=== PATIENT | female | born 1990 | race Caucasian/White ===

== ENCOUNTER 2024-04-14 14:53 | Emergency (ER) | payer BC, SELFPAY ==
[2024-04-14 15:24] VITALS: BP 138/96; PULSE 90; RESP 22; TEMP 36; O2SAT 98; BMI 28.3
--- NOTE | 2024-04-14 16:34 | ED_ITS ---
HPI - General Adult General Chief complaint: Extremity Pain/Injury, Lower Stated complaint: right side big toe hurts really bad Time Seen by Provider: 04/14/24 15:54 History of Present Illness HPI narrative: This 33-year-old female comes in with a very painful right great toenail. She d oes not report any particular injury event but states that she does quite a lot of walking. She developed a infection under the toenail and states that she needs to have the toenail removed. She does not report any fevers. She does have a whitish color under her great toenail typical of purulence with some surrounding erythema. She states she is otherwise in good health. Related Data Previous Rx's ?Medication ?Instructions ?Recorded cephalexin 500 mg capsule 500 mg PO TID 7 days #21 caps 04/14/24 ketorolac 10 mg tablet 10 mg PO Q8H 5 days #15 tabs 04/14/24 Review of Systems Status of ROS: Reports: 10 or more systems reviewed and unremarkable except as noted in History and below Narrative: Constitutional: No fevers, no weight gain or loss. Eyes: No discharge. No vision changes. HENT: No congestion, no sore throat, no ear pain. Cardiovascular: No chest pain, no palpitations. Respiratory: No shortness of breath, no wheezes, no cough. Gastrointestinal: No abdominal pain, no vomiting, no diarrhea. Genitourinary: No dysuria, no hematuria. Musculoskeletal: Normal range of motion. Skin: No rashes, no pruritis. Neurological: No dizziness, weakness, sensory change, speech change. Endo/Heme/Allergies: No bruising or bleeding. No polydipsia. Pysch: no suicidality, no anxiety, no insomnia. All other systems reviewed and are negative. Exam Narrative: Exam Narrative: Constitutional: Well-developed, well-nourished, no acute distress. HEENT: Normocephalic, atraumatic. Neck: Normal range of motion. Nontender. Supple. Heart: Regular. No murmurs. Normal rate. Intact distal pulses. Lungs: Clear to auscultation. No chest discomfort. No wheezes, rhonchi, or rales. Abdomen: Normal bowel sounds. Nontender. No rebound tenderness. Genitalia: Deferred. Back: No midline tenderness. Normal range of motion. Extremities: Normal range of motion. No injury. The right great toenail has pu rulence under the nail typical of a paronychial infection. There is some surrounding erythema and mild swelling. Skin: Intact. No rash. Warm. No erythema or pallor. Neurologic: No altered sensation. No weakness. Alert and oriented. Psychiatric: No suicidality. No anxiety or depression. No insomnia. Nursing notes and vitals signs are reviewed. Const: Vital Signs, click to edit/add: Vital Signs - 24 hr 04/14/24 15:24 Temperature 96.8 F L Pulse Rate [Left P ulse Oximeter] 90 Respiratory Rate 22 Blood Pressure [Ri ght Upper Arm] 138/96 H Pulse Oximetry 98 Oxygen Delivery Me thod Room Air Course Vital Signs Vital signs: Initial Vital Signs Temperature 96.8 F L 04/14/24 15:24 Temperature Source Temporal Artery Scan 04/14/24 15:24 Pulse Rate 90 04/14/24 15:24 Pulse Rhythm Regular 04/14/24 15:24 Respiratory Rate 22 04/14/24 15:24 Blood Pressure 138/96 H 04/14/24 15:24 Blood Pressure Mean 110 H 04/14/24 15:24 Blood Pressure Position Sitting 04/14/24 15:24 Pulse Oximetry 98 04/14/24 15:24 Oxygen Delivery Method Room Air 04/14/24 15:24 Vital Signs Temperature 96.8 F L 04/14/24 15:24 Pulse Rate 90 04/14/24 15:24 Respiratory Rate 22 04/14/24 15:24 Blood Pressure 138/96 H 04/14/24 15:24 Pulse Oximetry 98 04/14/24 15:24 Oxygen Delivery Method Room Air 04/14/24 15:24 Temperature 96.8 F L 04/14/24 15:24 Pulse Rate 90 04/14/24 15:24 Respiratory Rate 22 04/14/24 15:24 Blood Pressure 138/96 H 04/14/24 15:24 Pulse Oximetry 98 04/14/24 15:24 Oxygen Delivery Method Room Air 04/14/24 15:24 Medical Decision Making MDM Narrative Medical decision making narrative: This patient comes in with a infection under her right great toenail that is causing severe pain. After cleansing the area I did administer a digital block using 1% lidocaine. I did also use some injection of this medicine for further anesthesia right at the area around the toenail. With the assistance of a number 15 blade and a Shena I was able to easily remove the foot toenail without much discomfort. The nail bed is looking good. The patient is okay to be discharged home and received prescriptions for Toradol and Keflex. She also received to return to work note. Discharge Plan Discharge Clinical Impression: Paronychia Patient Disposition: Home, Self-Care Condition: Improved Additional Instructions: Take medication as prescribed. Follow up with MD return if worsening. Prescriptions: New ketorolac 10 mg tablet 10 mg PO Q8H 5 Days Qty: 15 0RF cephalexin 500 mg capsule 500 mg PO TID 7 Days Qty: 21 0RF Follow Up/Referrals: Michael Cornelius MD [Primary Care Provider] - Stand Alone Forms: [employer] Info Instructions
--- OUTSIDE RECORDS SUMMARY | 2024-04-14 16:54 | XMS_ITS | Encounter Summary ---
Author Organization [facility] Address [address] [place] [address] Care Team Providers Care Deli Associate Name Role Phone Unavailable Primary Care Provider Unavailabl e Reason for Referral * Therapies (Routine) - New Request Specialty Diagnoses / Procedures Referred By Contsheila t Referred To Contact Diagnoses Right knee pain, unspecified chronicity Araceli Frank PA-C [address] [place] [address] Referral ID Status Reason Start Date Expiration Date V isits Requested Visits Authorized [id number] New Request 02/21/2024 02/20/2025 1 1 Scheduling Instructions Your clinician has recommended an appointment with [facility] Therapy [facility] Rehabilitation Services. You can quickly make your appointment online at Bio/schedule. You can also call [phone] for help scheduling your appointment. We suggest you call your health insurance company about your coverage and benefits for this appointment. Question Answer Appointment Urgency? Non-Urgent Requested Services Evaluate and treat May use saline for irrigation or cleansing Yes dexamethasone use Yes May check glucose per protocol (see policy link below) or if patient has symptoms? Yes Comments Chronic right knee pain with suspected meniscal cyst. Eval and treat. * Procedure/Equipment (Routine) - Incomplete Specialty Diagnoses / Procedures Referred By Contac t Referred To Contact Diagnoses Right knee pain, unspecified chronicity Procedures XR Knee Rt 3 Views Araceli Frank PA-C [address] [place] [address] Referral ID Status Reason Start Date Expiration Date V isits Requested Visits Authorized [id number] Incomplete 02/21/2024 05/22/2025 1 1 Reason for Visit * Reason Comments KNEE PAIN Right knee margot - saw [facility] has a ACL/ runners knee Done pt and aspiration Encounter Details Date Type Department Care Team (Late st Contact Info) Description 02/21/2024 1:20 PM CDT Office Visit [facility] [address] [place] [phone] Araceli Frank PA-C [address] [place] [address] Right knee pain, unspecified chronicity (Primary Dx) Social History Tobacco Use Types Packs/Day Years Used Date Smoking Tobacco: Never Assessed Sex and Gender Information Value Date Recorded Sex Assigned at Not on file Gender Identity Not on file Sexual Orientation Not on file documented as of this encounter Last Filed Vital Signs Vital Sign Reading Time Taken Comments Blood Pressure - - Pulse - - Temperature - - Respiratory Rate - - Oxygen Saturation - - Inhaled Oxygen Concentration - - Weight 71.2 kg (156 lb 15.5 oz) 02/21/2024 1:14 PM CDT Height 160 cm (5' 3) 02/21/2024 1:14 PM CDT Body Mass Index 27.81 02/21/2024 1:14 PM CDT documented in this encounter Patient Instructions * Patient Instructions* Araceli Frank PA-C - 02/21/2024 1:20 PM CDT MRI Right Knee - progressing pain and suspicious of meniscal cyst and possible tear with mechanicalsymptoms. documented in this encounter Progress Notes * Araceli Frank PA-C - 02/21/2024 1:20 PM CDT Subjective: Chief Complaint Right Knee Pain Hanane Ojeda is a 33 y.o. female presents for evaluation and treatment of right knee pain. She reports initial onset of pain around 3 years ago and she states she had a MRI at that point in time with some Orthopedics and had a MCL tear as well as runner's knee. She went through physical therapy without any significant improvement. Over the last 2 years she is been having pain in her kneecap as well as a pressure sensation. Over the past month she is began to have popping in her knee has started to make significant noises with squatting and stairs over the last few weeks. She is also noticeda grape size structure that appears in the front of her knee when she does deep knee flexion. She st ates walking is okay and does not seem to bother her, but any sort of more intense activity or kneeflexion is bothersome. She notes that if she kneels on the floor to be with her son that her knee locks and she will get stuck on the floor for about 45 minutes due to her knee being stuck. She has to jerk it back into place. She has had intermittent swelling. She is utilizing naproxen, gabapentin,and also goes to a pain clinic. Past Medical History, Past Surgical History, Social History, and Family Medical History was reviewed and updated as appropriate. A complete review of systems was reviewed per the intake sheet and negative except as noted in HPI. No Known Allergies Objective: General : alert, cooperative, no distress, appears stated age Gait: Normal. The patient can bear weight on the injured extremity. Skin: Clean, dry, intact. No rashes or lesions. Right Lower Extremity Knee Effusion: None. Ecchymosis: none Tenderness: Medial joint line Knee ROM: 0 to 140 degrees with subpatellar crepitance. Strength Normal Patella: Patella does track normally. Patellar apprehension test: negative Patellar compression test: positive Stability: Vitaliy's test: stable Posterior drawer: stable Medial collateral ligament: stable Lateral collateral ligament: stable Michele's Test: positive with medial joint line tenderness Sensation: intact to light touch to pressure and light touch. Mass present to the medial joint with knee flexion that is subsides with knee extension. Imaging X-rays: 3 views of the knee were taken and independently reviewed. No evidence of acute fracture. Appropriate joint alignment. Assessment: Chronic right knee pain, suspected parameniscal cyst Plan: We discussed the diagnosis and treatment options. We opted to get her back in for physical therapy.We did discuss the use of a MRI, however she would need prior authorization from her insurance company and would likely require 6 weeks of conservative measures before being able to move forward witha MRI. She did state that she can get it from her pain clinic, so she is going to discuss with themif they are comfortable ordering the MRI. Radiology studies and anatomy of the knee reviewed. Patient verbalized understanding and agreement to our treatment plan. All of her questions were answered to her satifaction. Araceli Frank PA-C This note contains medical terminology which is meant for communication between health care clinicians and providers. Please note that vocabulary/phrasing/abbreviations may not carry the same definitions as they would in normal conversational speech. Additionally voice recognition software was usedto generate this note. As a result, wrong word or '[id number]' substitutions may have occurred due to the inherent limitations of voice recognition software. There may be errors in the script that have gone undetected. Please consider this when interpreting information found in this chart. documented in this encounter Plan of Treatment Scheduled Referrals Name Type Priority Associated Diagnoses Orde r Schedule Physical Therapy Referral Routine Right knee pain, unspecified chronicity Ordered: 02/21/2024 documented as of this encounter Procedures Procedure Name Priority Date/Time Associated Diagnosis Comments XR KNEE RT 3 VIEWS Routine 02/21/2024 1: 31 PM CDT Right knee pain, unspecified chronicity documented in this encounter Results * XR Knee Rt 3 Views (02/21/2024 1:31 PM CDT) Anatomical Region Laterality Modality Lower Extremity, Knee Digital Ra diography 02/21/2024 1:21 PM CDT Impressions 02/21/2024 2:14 PM CDT COMPARISON: ??None. FINDINGS: ??Three views were obtained. ??No acute or significant bone or joint abnormality of the right knee is identified. ??Alignment is unremarkable. Narrative Procedure Note Elena Fernandez MD - 02/21/2024 IMPRESSION COMPARISON: None. FINDINGS: Three views were obtained. No acute or significant bone orjoint abnormality of the right knee is identified. Alignment isunremarkable. Araceli BRADSHAW GD documented in this encounter Visit Diagnoses Diagnosis Right knee pain, unspecified chronicity- Primary documented in this encounter
--- OUTSIDE RECORDS SUMMARY | 2024-04-14 16:54 | XMS_ITS | Encounter Summary ---
Author Organization [facility] Address [address] [address] Care Team Providers Care Boiler Repairman Name Role Phone Unavailable Primary Care Provider Unavailabl e Reason for Visit * Procedure/Equipment (Routine) - Incomplete Specialty Diagnoses / Procedures Referred By Contac t Referred To Contact Procedures Foreign Image(S) MR Knee Rt Provider, [facility] [address] [place] [address] Referral ID Status Reason Start Date Expiration Date V isits Requested Visits Authorized [id number] Incomplete 03/26/2024 06/25/2025 1 1 Encounter Details Date Type Department Care Team (Late st Contact Info) Description 03/18/2024 4:05 PM CDT Ancillary Procedure [facility] [address] [place] [id number] Provider, [facility] [address] [place] [address] Social History Tobacco Use Types Packs/Day Years Used Date Smoking Tobacco: Never Assessed Sex and Gender Information Value Date Recorded Sex Assigned at Not on file Gender Identity Not on file Sexual Orientation Not on file documented as of this encounter Plan of Treatment Not on file documented as of this encounter Procedures Procedure Name Priority Date/Time Associated Diagnosis Comments FOREIGN IMAGE(S) MR KNEE RT Routine 03/18/2024 4:05 PM CDT documented in this encounter Results * Foreign Image(S) MR Knee Rt (03/18/2024 4:05 PM CDT) Narrative POCT - 03/26/2024 8:50 AM CDT These outside images have been uploaded into PACS. If the results were provided, they will be located in the patient's chart under the Media or Imaging tab. Foreign Images Provider RAD NON-REPORTAB LES POCT documented in this encounter Visit Diagnoses Not on filedocumented in this encounter
--- OUTSIDE RECORDS SUMMARY | 2024-04-14 16:54 | XMS_ITS | Encounter Summary ---
Author Organization [facility] Address [address] [address] Care Team Providers Care Body And Frame Technician Name Role Phone Unavailable Primary Care Provider Unavailabl e Reason for Visit * Procedure/Equipment (Routine) - Incomplete Specialty Diagnoses / Procedures Referred By Contac t Referred To Contact Diagnoses Right knee pain, unspecified chronicity Procedures XR Knee Rt 3 Views Araceli Frank PA-C [address] [place] [address] Referral ID Status Reason Start Date Expiration Date V isits Requested Visits Authorized [id number] Incomplete 02/21/2024 05/22/2025 1 1 Encounter Details Date Type Department Care Team (Late st Contact Info) Description 02/21/2024 1:25 PM CDT [facility] [address] [facility] [address] [place] [phone] Araceli Frank PA-C [address] [place] [address] Social History Tobacco Use Types Packs/Day Years [...] GD documented in this encounter Visit Diagnoses Not on filedocumented in this encounter
--- OUTSIDE RECORDS SUMMARY | 2024-04-14 16:54 | XMS_ITS | Encounter Summary ---
Author Organization [facility]ending sale to [facility] Address [address] [address] Care Team Providers Care Forensic Pathologist Name Role Phone Found, No Pcp MD Primary Care Provider Unavailab le Reason for Visit * Reason Comments Surgery, To Schedule Appt. Needed Encounter Details Date Type Department Care Team (Late st Contact Info) Description 03/28/2024 Telephone [facility] [address] [place] [phone] [place] [address] [facility] [address] [place] [address] Surgery, To Schedule; Appt. Needed Social History Tobacco Use Types Packs/Day Years Used Date Smoking Tobacco: Never Assessed Sex and Gender Information Value Date Recorded Sex Assigned at Not on file Gender Identity Not on file Sexual Orientation Not on file documented as of this encounter Nursing Notes * Jeanie Coleman - 03/28/2024 3:09 PM CDT LVM for patient regarding surgery - she will need a follow up appt on clinic with Dr. Espinosa. CALL CENTER: please assist with an appt if Hanane calls back Thank you CD documented in this encounter Plan of Treatment Not on file documented as of this encounter Visit Diagnoses Not on filedocumented in this encounter Care Teams Forensic Pathologist Relationship Specialty Start Date End Date Found, No Pcp, [address] [place] [address] PCP - General 03/25/24 documented as of this encounter
--- OUTSIDE RECORDS SUMMARY | 2024-04-14 16:54 | XMS_ITS | Encounter Summary ---
Author Organization [facility] Address [address] [address] Care Team Providers Care Game Attendant Name Role Phone Found, No Pcp MD Primary Care Provider Unavailab le Reason for Visit * Reason Comments Follow-up Right knee MRI resul ts Encounter Details Date Type Department Care Team (Late st Contact Info) Description 03/27/2024 11:40 AM CDT Office Visit [facility] [address] [place] [phone] Araceli Frank PA-C [address] [place] [address] Right knee pain, unspecified chronicity (Primary Dx) Social History Tobacco Use Types Packs/Day Years Used Date Smoking Tobacco: Never Assessed Sex and Gender Information Value Date Recorded Sex Assigned at Not on file Gender Identity Not on file Sexual Orientation Not on file documented as of this encounter Progress Notes * Araceli Frank PA-C - 03/27/2024 11:40 AM CDT Hanane returns today for MRI review. Ever since she had the injection in her knee for the MR arthrogram, the mass has continued to cause her more issues in his now moving throughout the joint. She states he used to be stationary in was only bothersome when she would sit on the floor and get back up, but now it is bothersome at all times. She would like to have the mass removed. She has been cortisone in the past in his not interested in giving it a trial. Right Knee MRI IMPRESSION: 1. A 1.3 x 1.0 x 1.1 cm ovoid focus of intermediate signal within the anterior joint space deep to the infrapatellar fat pad may reflect localized nodular synovitis but is not specific. This is new compared to previous MRI 11/19/2019. 2. 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 3. No osseous pathology, tendinous pathology, acute ligamentous injury, or meniscal pathology of the right knee. Intact medial and lateral compartment cartilage. Araceli Frank PA-C 1:12 PM 03/27/2024 documented in this encounter Plan of Treatment Not on file documented as of this encounter Visit Diagnoses Diagnosis Right knee pain, unspecified chronicity- Primary documented in this encounter Care Teams Game Attendant Relationship Specialty Start Date End Date Found, No Pcp, [address] [place] [address] PCP - General 03/25/24 documented as of this encounter
--- OUTSIDE RECORDS SUMMARY | 2024-04-14 16:54 | XMS_ITS | Clinical Summary ---
Author Organization [facility] Address [address], [place] [address] Care Team Providers Care Armature Straightener Name Role Phone Found, No Pcp MD Primary Care Provider Unavailab le Source Comments You are receiving this document as you are listed as the primary care provider,follow-up provider, or the patient has been referred to you for consultation.This is in compliance with the Medicare and[facility], In[facility] EHR Incentive Program,which states Providers who transition their patient to another setting of careor provider of care or refers their patient to another provider of care shouldprovide summary care record for each transition of care or referral. [facility] Allergies No known active allergies Medications Medication Sig Dispensed Refills Start Date End Date Status buprenorphine (SUBUTEX) [address] 3 Tablets (24 mg) under tongue daily as needed. Active methocarbamol (ROBAXIN) 500 MG tablet Take 1 Tablet (500 mg) by mouth three times a day. 01/22/2024 Active naproxen (NAPROSYN) 250 MG tablet Take 1 Tablet (250 mg) by mouth two times a day. 02/18/2024 Active gabapentin (NEURONTIN) 300 MG capsule Take 1 Capsule (300 mg) by mouth three times a day. 02/21/2024 Active Active Problems No known active problems Encounters Date Type Department Care Team Description 03/28/2024 Telephone [facility] [address] [place] [address] Samson Espinosa MD Surgery, To Schedule; Appt. Needed 03/27/2024 11:40 AM CDT Office Visit [facility] [address] [place] [address] Araceli Frank PA-C Right knee pain, unspecified chronicity (Primary Dx) 03/25/2024 Telephone [facility] [address] [place] [address] Araceli Frank PA-C Appt. Work In Request (MRI Results); Pain 03/18/2024 4:05 PM CDT Ancillary Procedure Radiology PACS [address] [place] [address] Provider, Foreign Images 03/18/2024 3:50 PM CDT Ancillary Procedure Radiology PACS [address] [place] [address] Provider, Foreign Images 02/21/2024 1:25 PM CDT Ancillary Procedure [facility] [place] [address] [facility] [address] [place] [address] Araceli Frank PA-C 02/21/2024 1:20 PM CDT Office Visit [facility] [address] [place] [address] Araceli Frank PA-C Right knee pain, unspecified chronicity (Primary Dx) from Last 3 Months Social History Tobacco Use Types Packs/Day Years Used Date Smoking Tobacco: Never Assessed Sex and Gender Information Value Date Recorded Sex Assigned at Not on file Gender Identity Not on file Sexual Orientation Not on file Last Filed Vital Signs Vital Sign Reading Time Taken Comments Blood Pressure - - Pulse - - Temperature - - Respiratory Rate - - Oxygen Saturation - - Inhaled Oxygen Concentration - - Weight 71.2 kg (156 lb 15.5 oz) 02/21/2024 1:14 PM CDT Height 160 cm (5' 3) 02/21/2024 1:14 PM CDT Body Mass Index 27.81 02/21/2024 1:14 PM CDT Plan of Treatment Health Maintenance Due Date Last Done Comments Cervical Cancer Screening Due 1991 Hep C Screening (Preventive Services) 1991 HIV Screening (Preventive Services) 2007 Adult Preventive Visit 2009 HepB (1) 2010 COVID-19 Vaccine (2022-2 4 season) 2023 03/10/2021, 02/20/2021 DTaP/Tdap/Td (2 - Tdap) 03/12/2024 03/12/2014 Influenza (#1) 2024 Zoster/Shingles (1 of 2) 2041 HPV Vaccine Completed 11/14/2011, 01/14/2008, 11/14/2007 HepA Aged Out No longer eligi ble based on patient's age to complete this topic Hib Aged Out No longer eligi ble based on patient's age to complete this topic IPV (Polio) Aged Out No longer eligi ble based on patient's age to complete this topic MCV4 Aged Out No longer eligi ble based on patient's age to complete this topic Pneumococcal Aged Out No longer eligi ble based on patient's age to complete this topic Procedures Procedure Name Priority Date/Time Associated Diagnosis Comments FOREIGN IMAGE(S) MR KNEE RT Routine 03/18/2024 4:05 PM CDT FOREIGN IMAGE(S) XR FLUOROSCOPY Routine 03/18/2024 3:50 PM CDT XR KNEE RT 3 VIEWS Routine 02/21/2024 1: 31 PM CDT Right knee pain, unspecified chronicity from Last 3 Months Results * Foreign Image(S) MR Knee Rt (03/18/2024 4:05 PM CDT) Narrative POCT - 03/26/2024 8:50 AM CDT These outside images have been uploaded into PACS. If the results were provided, they will be located in the patient's chart under the Media or Imaging tab. Foreign Images Provider RAD NON-REPORTAB LES POCT * Foreign Image(S) XR Fluoroscopy (03/18/2024 3:50 PM CDT) Narrative POCT - 03/26/2024 8:52 AM CDT These outside images have been uploaded into PACS. If the results were provided, they will be located in the patient's chart under the Media or Imaging tab. Foreign Images Provider RAD NON-REPORTAB LES POCT * XR Knee Rt 3 Views (02/21/2024 [...] is identified. Alignment isunremarkable. Araceli BRADSHAW GD from Last 3 Months Care Teams Armature Straightener Relationship Specialty Start Date End Date Found, No Pcp, [address] [place] [address] PCP - General 03/25/24
--- OUTSIDE RECORDS SUMMARY | 2024-04-14 16:54 | XMS_ITS | Encounter Summary ---
Author Organization [facility] Address [address], [place] [address] Care Team Providers Care Sawmill Production Worker Name Role Phone Unavailable Primary Care Provider Unavailabl e Reason for Visit * Procedure/Equipment (Routine) - Incomplete Specialty Diagnoses / Procedures Referred By Contac t Referred To Contact Procedures Foreign Image(S) XR Fluoroscopy Provider, Foreign Images [address] [place] [address] Referral ID Status Reason Start Date Expiration Date V isits Requested Visits Authorized [id number] Incomplete 03/26/2024 06/25/2025 1 1 Encounter Details Date Type Department Care Team (Late st Contact Info) Description 03/18/2024 3:50 PM CDT Ancillary Procedure [facility] P[facility] [address] [place] [address] Provider, Foreign Images [address] [place] [address] Social History Tobacco Use Types Packs/Day Years Used Date Smoking Tobacco: Never Assessed Sex and Gender Information Value Date Recorded Sex Assigned at Not on file Gender Identity Not on file Sexual Orientation Not on file documented as of this encounter Plan of Treatment Not on file documented as of this encounter Procedures Procedure Name Priority Date/Time Associated Diagnosis Comments FOREIGN IMAGE(S) XR FLUOROSCOPY Routine 03/18/2024 3:50 PM CDT documented in this encounter Results * Foreign Image(S) XR Fluoroscopy (03/18/2024 3:50 [...]
--- OUTSIDE RECORDS SUMMARY | 2024-04-14 16:54 | XMS_ITS | Encounter Summary ---
Author Organization [facility] Address [address] [place] [address] Care Team Providers Care Family And Marriage Counsellor Name Role Phone Found, No Pcp MD Primary Care Provider Unavailab le Reason for Visit * Reason Comments Appt. Work In Request MRI Results Pain Encounter Details Date Type Department Care Team (Late st Contact Info) Description 03/25/2024 Telephone [facility] [place] [facility] [address] [place] [address] Araceli Frank PA-C [address] [place] [address] Appt. Work In Request (MRI Results); Pain Social History Tobacco Use Types Packs/Day Years Used Date Smoking Tobacco: Never Assessed Sex and Gender Information Value Date Recorded Sex Assigned at Not on file Gender Identity Not on file Sexual Orientation Not on file documented as of this encounter Nursing Notes * Araceli Frank PA-C - 03/25/2024 5:03 PM CDT Left VM. I recommend doing a cortisone injection and PT to start. It is okay to double book an AM slot, or see her over lunch time, on 03/27/24. That afternoon will not work. If she is unable to come in on Monday, she will need to wait until her current appointment on 04/08/24. She is not in any harm to wait until the 04/08 appointment. Araceli Frank PA-C 5:07 PM 03/25/2024 * Rosana Andre - 03/25/2024 3:54 PM CDT GENERAL QUESTIONS How may we help you today? 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 Pt scheduled the next availablefollow up 04/08/2024. Pt said the knee growth is popping out in front of the knee and causing more pain than before when it just hurt when bending. Pt requests an earlier work in appt or another provider for pt to see sooner. Please advise. Describe your symptoms/concerns: MRI results sooner appt request When did the issue start: 03/18/2024 Have you been seen for this recently?: Yes: Date: 02/21/2024 Provider: Araceli Frank PA-C If we are unable to reach you can we leave a detailed message on your voicemail? Yes If we are unable to reach you can we send you a message in [employer]? No [Meat Market Manager/Clamp Forklift Operator: Relay to patient; We make every effort to get back to you sameday, however it may take 1-2 business days depending on the nature of the communication.] documented in this encounter Plan of Treatment Not on file documented as of this encounter Visit Diagnoses Not on filedocumented in this encounter Care Teams Family And Marriage Counsellor Relationship Specialty Start Date End Date Found, No Pcp, [address] [place] [address] PCP - General 03/25/24 documented as of this encounter
--- OUTSIDE RECORDS SUMMARY | 2024-04-14 16:55 | XMS_ITS | Encounter Summary ---
Author Organization [place] Address [facility] [place] [address] Care Team Providers Care Economics Analyst Name Role Phone Tone Galindo MD Primary Care Provider Sekou Machado MD Unavailable Ericka Hernandez APRN MANAGER VEHICLE Unavailable Unavail able Tone Galindo MD Unavailable Ericka Hernandez APRN MANAGER VEHICLE Unavailable Unavail able Clinic - [facility] Unavail able Encounter Details Date Type Department Care Team (Late st Contact Info) Description 04/12/2022 MyC Medical Advice [facility] [address] [place] [address] Sekou Machado MD [address] [place] [address] Social History Tobacco Use Types Packs/Day Years Used Date Smoking Tobacco: Every Day Cigarettes 0.3 10 Smokeless Tobacco: Never Comments:Decreased from 1ppd to less than 6 cigarettes /d Alcohol Use Standard Drinks/Week Comments No 0 (1 standard drink = 0.6 oz pur e alcohol) PHQ-2 Answer Date Recorded PHQ-2 Score 0 04/14/2022 Comments Yes Sex and Gender Information Value Date Recorded Sex Assigned at Female 12/17/2021 7:56 AM CDT Gender Identity Female 12/17/2021 7:56 AM CDT Sexual Orientation Not on file COVID-19 Exposure Response Date Recorded In the last 10 days, have yo u been in contact with someone who was confirmed or suspected to have Coronavirus/COVID-19? No / Unsure 04/14/2022 9:39 AM CDT documented as of this encounter Plan of Treatment Not on file documented as of this encounter Visit Diagnoses Not on filedocumented in this encounter Care Teams Economics Analyst Relationship Specialty [place] [address] [place] [address] PCP - General Family Practice 09/12/16 Sekou Machado MD [address] [place] [address] Assigned OBGYN Provider 10/03/21 Ericka Hernandez APRN MANAGER VEHICLE [address] [place] [address] Assigned PCP 12/26/21 01/06/23 [place] [address] [place] [address] Assigned PCP 01/07/23 06/30/23 Ericka Hernandez APRN MANAGER VEHICLE Assigned PCP 07/01/23 10/25/23 [facility] [address] [place] [address] Assigned PCP 10/26/23 documented as of this encounter
--- OUTSIDE RECORDS SUMMARY | 2024-04-14 16:55 | XMS_ITS | Encounter Summary ---
Author Organization [place] Address [facility] [place] [address] Care Team Providers Care Paster Supervisor Name Role Phone Tone Galindo MD Primary Care Provider [phone] Clinic - [facility] Unavail able Reason for Visit * Reason Onset Date Comments Hospital F/U 03/29/2024 Wrist Drop Right Encounter Details Date Type Department Care Team (Late st Contact Info) Description 03/29/2024 Telephone [facility] [address] [place] [address] Deysi Zabala, MELISSA Hospital F/U (Wrist Drop Right ) Social History Tobacco Use Types Packs/Day Years Used Date Smoking Tobacco: Every Day Cigarettes 0.3 10 Smokeless Tobacco: Never Comments:Decreased from 1ppd to less than 6 cigarettes /d Alcohol Use Standard Drinks/Week Comments No 0 (1 standard drink = 0.6 oz pur e alcohol) PHQ-2 Answer Date Recorded PHQ-2 Score 0 06/07/2022 [place] Depression Scale Answer Date Recorded Last EPDS Total Score Not on file 05/03/2022 The thought of harming myself has occurred to me . Never 05/03/2022 Adolescent Education Answer Date Record ed Getting School Help Needed Not on file 07/13 Sex and Gender Information Value Date Recorded Sex Assigned at Female 12/17/2021 7:56 AM CDT Gender Identity Female 12/17/2021 7:56 AM CDT Sexual Orientation Not on file documented as of this encounter Miscellaneous Notes * Telephone Encounter - Ashley Marvin RN - 04/01/2024 1:21 PM CDT Transitions of Care Outreach Chief Complaint Patient presents with Hospital F/U Wrist Drop Right Most Recent Admission Date: 03/28/2024 Most Recent Admission Diagnosis: Most Recent Discharge Date: 03/28/2024 Most Recent Discharge Diagnosis: Wrist drop, right - M21.331 Transitions of Care Assessment Discharge Assessment How are you doing now that you are home?: Some feeling in her wrist has come back but the rest is unchanged How are your symptoms? (Red Flag symptoms escalate to triage hotline per guidelines): Unchanged Do you know how to contact your clinic care team if you have future questions or changes to your health status? : Yes Does the patient have their discharge instructions? : Yes Does the patient have questions regarding their discharge instructions? : Yes (see comment) (Provided patient the number on the neurology referral for scheduling.) Were you started on any new medications or were there changes to any of your previous medications? : No Does the patient have all of their medications?: No (see comment) (no new medications) Do you have questions regarding any of your medications? : No Do you have all of your needed medical supplies or equipment (DME)? (i.e. oxygen tank, CPAP, cane, etc.): Yes Follow up Plan Discharge Follow-Up Discharge follow up appointment scheduled in alignment with recommended follow up timeframe or Transitions of Risk Category? (Low = within 30 days; Moderate= within 14 days; High= within 7 days): No Patient's follow up appointment not scheduled: Patient declined scheduling support. Education on the importance of transitions of care follow up. Provided scheduling phone number. No future appointments. Outpatient Plan as outlined on AVS reviewed with patient. For any urgent concerns, please contact our 24 hour nurse triage line: ([phone]) Ashley Marvin RN * Telephone Encounter - Kate Amos RN - 03/29/2024 9:16 AM CDT Attempt x 1. Called pt and left a message to call back to and to ask to speak to a triage nurse. When pt calls back, Complete hospital follow-up. Kate Nolasco RN PAL (Patient Advocate Liaison) [facility] * Telephone Encounter - Deysi Zabala RN - 03/29/2024 8:00 AM CDT Hospital Follow Up ER visit 03/28/24 Diagnosis Wrist drop right (neuropathy radial neve) Medications No medication changes at ER visit Follow Up instructions Neurology referral placed Does not advise pcp follow up - has not been seen since 2020 - needs visit is Dr. Galindo is still pcp [facility] documented in this encounter Plan of Treatment Not on file documented as of this encounter Visit Diagnoses Not on filedocumented in this encounter Additional Health Concerns Assessment Noted Time PHQ-9 Depression Total Score: 0 06/07/20 22 4:21 PM CDT documented as of this encounter Care Teams Paster Supervisor Relationship Specialty [place] [address] [place] [address] PCP - General Family Practice 09/12/16 Clinic - [facility] [address] [place] [address] Assigned PCP 10/26/23 documented as of this encounter
--- OUTSIDE RECORDS SUMMARY | 2024-04-14 16:55 | XMS_ITS | Encounter Summary ---
Author Organization [place] Address [facility] [place] [address] Care Team Providers Care District Manager Postal Service Name Role Phone Tone Galindo MD Primary Care Provider Sekou Machado MD Unavailable [phone] Ericka Hernandez APRN DIAMOND POWDER TECHNICIAN Unavailable Unavail able Tone Galindo MD Unavailable Ericka Hernandez APRN DIAMOND POWDER TECHNICIAN Unavailable Unavail able [facility] Unavail able Reason for Visit * Reason Onset Date Comments MyChart Communication 03/02/2022 Encounter Details Date Type Department Care Team (Late st Contact Info) Description 03/02/2022 MyC Medical Advice [facility] [address] [facility] [address] [place] [address] Sekou Machado MD [address] [place] [address] MyChart Communication Social History Tobacco Use Types Packs/Day Years Used Date Smoking Tobacco: Every Day Cigarettes 0.3 10 Smokeless Tobacco: Never Comments:Decreased from 1ppd to less than 6 cigarettes /d Alcohol Use Standard Drinks/Week Comments No 0 (1 standard drink = 0.6 oz pur e alcohol) PHQ-2 Answer Date Recorded PHQ-2 Score 0 09/29/2021 Comments Yes Sex and Gender Information Value Date Recorded Sex Assigned at Female 12/17/2021 7:56 AM CDT Gender Identity Female 12/17/2021 7:56 AM CDT Sexual Orientation Not on file COVID-19 Exposure Response Date Recorded In the last 10 days, have yo u been in contact with someone who was confirmed or suspected to have Coronavirus/COVID-19? No / Unsure 03/03/2022 2:20 PM CDT documented as of this encounter Miscellaneous Notes * Telephone Encounter - Sarah Denson RN - 03/02/2022 4:05 PM CDT Please see mychart and advise. Pt has appt tomorrow wiht you, PT scheduled for 03/15. Sarah Denson RN documented in this encounter Plan of Treatment Not on file documented as of this encounter Visit Diagnoses Not on filedocumented in this encounter Care Teams District Manager Postal Service Relationship Specialty [place] [address] [place] [address] PCP - General Family Practice 09/12/16 Sekou Machado MD [address] [place] [address] Assigned OBGYN Provider 10/03/21 Ericka Hernandez APRN DIAMOND POWDER TECHNICIAN [address] [place] [address] Assigned PCP 12/26/21 01/06/23 [place] [address] [place] [address] Assigned PCP 01/07/23 06/30/23 Ericka Hernandez APRN DIAMOND POWDER TECHNICIAN Assigned PCP 07/01/23 10/25/23 Clinic - [facility] [address] [place] [address] Assigned PCP 10/26/23 documented as of this encounter
--- OUTSIDE RECORDS SUMMARY | 2024-04-14 16:55 | XMS_ITS | Encounter Summary ---
Author Organization [place] Address [facility] [address] Care Team Providers Care Burner Tender Name Role Phone Tone Galindo MD Primary Care Provider Sekou Machado MD Unavailable Tone Galindo MD Unavailable Ericka Hernandez APRN ADA ACCOMMODATION CONSULTANT Unavailable Unavail able Tone Galindo MD Unavailable Ericka Hernandez APRN ADA ACCOMMODATION CONSULTANT Unavailable Unavail able [facility] Unavail able Encounter Details Date Type Department Care Team (Late st Contact Info) Description 10/29/2021 MyC Medical Advice [facility] [address] [place] [address] Sekou Machado MD [address] [place] [address] Social History Tobacco Use Types Packs/Day Years [...] Exposure Response Date Recorded In the last month, have you been in contact with someone who was confirmed or suspected to have Coronavirus / COVID-19? No / Unsure 10/29/2021 9:59 AM GUIDE WINDER documented as of this encounter Plan of Treatment Not on file documented as of this encounter Visit Diagnoses Not on filedocumented in this encounter Care Teams Burner Tender Relationship Specialty [place] [address] [place] [address] PCP - General Family Practice 09/12/16 Sekou Machado MD [address] [place] [address] Assigned OBGYN Provider 10/03/21 [place] [address] [place] [address] Assigned PCP 10/10/21 12/25/21 Ericka Hernandez APRN ADA ACCOMMODATION CONSULTANT [address] [place] [address] Assigned PCP 12/26/21 01/06/23 [place] [address] [place] [address] Assigned PCP 01/07/23 06/30/23 Ericka Hernandez APRN ADA ACCOMMODATION CONSULTANT Assigned PCP 07/01/23 10/25/23 [facility] [address] [place] [address] Assigned PCP 10/26/23 documented as of this encounter
--- OUTSIDE RECORDS SUMMARY | 2024-04-14 16:55 | XMS_ITS | Encounter Summary ---
Author Organization [place] Address [address] [facility] [place] [address] Care Team Providers Care Communication Manager Name Role Phone Tone Galindo MD Primary Care Provider [phone] [facility] Unavail able Reason for Referral * Consultation (Urgent: 3-5 Days) - Pending Review Specialty Diagnoses / Procedures Referred By Blanche cardenas Referred To Contact Diagnoses Wrist drop, right Jagdeep Shipman PA-C [facility] [address] [place] [address] Referral ID Status Reason Start Date Expiration Date V isits Requested Visits Authorized [id number] Pending Review 03/28/2024 03/28/2025 1 1 Question Answer Reason for Referral: General Neurology Scheduling Instructions: [facility] will call you to coordinate your care as prescribed by your provider. If you don't hear from a credit representative within 2 business days, please call . Additional Information: acute right wrist drop Comments Please be aware that coverage of these services is subject to the terms and limitations of your health insurance plan. Call member services at your health plan with any benefit or coverage questions. [facility] will call you to coordinate your care as prescribed by your provider. If you don't hear from a credit representative within 2 business days, please call . Reason for Visit * Reason Comments Extremity Weakness Encounter Details Date Type Department Care Team (Late st Contact Info) Description 03/28/2024 7:36 PM CDT - 03/28/2024 10:01 PM CDT Emergency [facility] Emergency Dept [address] [place] [address] Jagdeep Shipman, PA-C [facility] [address] [place] [address] Wrist drop, right (Primary Dx) Discharge Disposition: Home or Self Care Social History Tobacco Use Types Packs/Day Years Used Date Smoking Tobacco: Every Day Cigarettes 0.3 10 Smokeless Tobacco: Never Comments:Decreased from 1ppd to less than 6 cigarettes /d Alcohol Use Standard Drinks/Week Comments No 0 (1 standard drink = 0.6 oz pur e alcohol) PHQ-2 Answer Date Recorded PHQ-2 Score 0 06/07/2022 [place] Depression Scale Answer Date Recorded Last EPDS [...] Sign Reading Time Taken Comments Blood Pressure 138/78 03/28/2024 6:23 PM CDT Pulse 89 03/28/2024 6:23 PM CDT Temperature 37.2 ??C (98.9 ??F) 03/28/2024 6:23 PM CD T Respiratory Rate 18 03/28/2024 6:23 PM CDT Oxygen Saturation 99% 03/28/2024 6:23 PM CDT Inhaled Oxygen Concentration - - Weight 70.8 kg (156 lb 1.4 oz) 03/28/2024 6:23 P M CDT Height - - Body Mass Index 27.65 04/28/2022 10:03 AM CDT documented in this encounter Discharge Instructions * Attachments The following attachments cannot be sent through Care Everywhere. * Neuropathy: Radial Nerve: Monday Night Palsy (Nigerian) documented in this encounter Medications at Time of Discharge Medication Sig Dispensed Refills Start Date End Date fluticasone (FLOVENT HFA) 44 MCG/ACT inhalerIndications:Sin obronchitis Inhale 1 puff into the lungs 2 times daily 10.6 g 08/22/2023 acetaminophen (TYLENOL) 325 MG tablet Take 325-650 mg by mouth every 6 hours as needed for mild pain 04/11/2024 albuterol (PROAIR HFA/PROVENTIL HFA/VENTOLIN HFA) 108 (90 Base) MCG/ACT inhalerIndications:Mod erate persistent reactive airway disease with acute exacerbation Inhale 2 puffs into the lungs every 6 hours as needed for shortness of breath, wheezing or cough 18 g 07/13/2023 04/11/2024 buprenorphine (SUBUTEX) 8 MG SUBL sublingual tablet Place 4 mg under the tongue 5 times daily 04/11/2024 dextromethorphan (TUSSIN COUGH) 15 MG/5ML syrup Take 10 mLs by mouth 4 times daily as needed for cough 04/11/2024 Lidocaine (LIDOCARE) 4 % Patch Place 1 patch onto the skin every 24 hours To prevent lidocaine toxicity, patient should be patch free for 12 hrs daily. 5 patch 01/18/2023 04/11/2024 methocarbamol (ROBAXIN) 500 MG tablet 2022 04/11/2024 methylPREDNISolone (MEDROL DOSEPAK) 4 MG tablet therapy packIndications:Bronch itis Follow Package Directions 21 tablet 10/20/2022 04/11/2024 mupirocin (BACTROBAN) 2 % external ointmentIndications:Im petigo Apply topically 3 times daily 15 g 08/22/2023 04/11/2024 ondansetron (ZOFRAN-ODT) 4 MG ODT tabIndications:Prenata l care, subsequent , unspecified trimester Place 1 tablet (4 mg) under the tongue every 6 hours as needed for nausea 120 tablet 3 10/29/2021 04/11/2024 predniSONE (DELTASONE) 20 MG tabletIndications:Mode rate persistent reactive airway disease with acute exacerbation Take 3 tabs by mouth daily x 3 days, then 2 tabs daily x 3 days, then 1 tab daily x 3 days, then 1/2 tab daily x 3 days. 20 tablet 07/13/2023 04/11/2024 Vit-Fe Fumarate-FA (PNV PLUS MULTIVITAMIN) 27-1 MG TABS per tablet Take 1 tablet by mouth daily 04/11/2024 documented as of this encounter Consult Notes * Sekou Macedo MD - 03/28/2024 10:01 PM CDT [facility] Stroke Telephone Note I was called by Jagdeep Shipman PA-C on 03/28/24 regarding patient Hanane Ojeda. The patient is a 33 year old female who presents with complete right wrist drop and milder hand weakness. Pattern of weakness and numbness (below the elbow involving the back of the arm/hand and thumb) suggestive of radial nerve palsy--do not suspect central etiology Recommend General Neurology guide ED work-up and recommendations. Sekou Macedo MD, MS Vascular Neurology To page me or covering stroke neurology associate team physician, click here: [employer] Choose Driver Merchandiser tab at top, then search dropdown box for Neurology Adult, select location, pressEnter, then look for stroke/neuro ICU/telestroke. documented in this encounter ED Notes * Katerina Hatch RN - 03/28/2024 6:25 PM CDT Pt c/o of right arm numbness that started about 330 this morning she thought she slept on it wrong but the numbness has persisted throughout the day CMS intact states that the numbness starts at about the elbow Triage Assessment (Adult) Row Name 03/28/24 1824 Triage Assessment Airway WDL WDL Respiratory WDL Respiratory WDL WDL Skin Circulation/Temperature WDL Skin Circulation/Temperature WDL WDL Cardiac WDL Cardiac WDL WDL Peripheral/Neurovascular WDL Peripheral Neurovascular WDL WDL Cognitive/Neuro/Behavioral WDL Cognitive/Neuro/Behavioral WDL WDL * Jagdeep Shipman PA-C - 03/28/2024 6:20 PM CDT Images from the original note were not included. Emergency Department Note History of Present Illness Chief Complaint Extremity Weakness HPI Hanane Ojeda is a 33 year old female who presents to the ER for right arm numbness. Patient reports waking up at 0300 after sleeping group home sitting up and having a numb right arm but attributed it to sleeping wrong. She states that she wakes up every morning with numb arms but this time it didnot go away. She describes being unable to lift her hand and reduced movement of fingers. She denies loss of feeling in her face and legs or left arm. Hanane recalls having a bad disk in her neck. Denies any autoimmune disorders, recent infections, fevers, radiculopathy. No recent head, neck or shoulder trauma. No recent chiropractor adjustments. No headache. Denies weakness of the other extremities, face or numbness located to other parts of the body. No vision changes. No swelling. Independent Historian None Review of External Notes Past Medical History Medical History and Problem List Bladder stone Depression Generalized anxiety disorder H/O LEEP Immunization deficiency Opiate abuse, episodic PCOS Missed Seasonal allergic rhinitis Seizures Shingles Tobacco abuse Varicella Medications Albuterol Buprenorphine Methocarbamol Ondansetron Prednisone vitamins Naproxen Lorazepam Surgical History Dilation and curettage suction EGD Colonoscopy LEEP TX, cervical Physical Exam Patient Vitals for the past 24 hrs: BP Temp Pulse Resp SpO2 Weight 03/28/24 1823 138/78 98.9 ??F (37.2 ??C) 89 18 99 % 70.8 kg (156 lb 1.4 oz) Physical Exam Vitals and nursing note reviewed. Constitutional: Appearance: She is not diaphoretic. HENT: Head: Atraumatic. Eyes: General: No scleral icterus. Cardiovascular: Rate and Rhythm: Normal rate and regular rhythm. Heart sounds: Normal heart sounds. No murmur heard. No friction rub. No gallop. Pulmonary: Effort: Pulmonary effort is normal. No respiratory distress. Breath sounds: Normal breath sounds. No stridor. No wheezing, rhonchi or rales. Musculoskeletal: Right shoulder: No swelling, deformity or tenderness. Normal range of motion. Left shoulder: Normal range of motion. Right upper arm: No swelling, deformity or tenderness. Right elbow: No swelling or deformity. Normal range of motion. No tenderness. Left elbow: Normal range of motion. Right forearm: No swelling, edema, deformity or tenderness. Right wrist: No tenderness. Decreased range of motion (right wrist drop without the ability to extend the wrist). Normal pulse. Left wrist: Normal range of motion. Normal pulse. Right hand: No swelling, deformity or tenderness. Normal range of motion. Decreased strength of finger abduction and wrist extension. Decreased sensation (dorsal aspect of the right hand and proximalto the elbow. Has pressure sensation, no sharp sensation. Ventral surface of the hand to the elbow normal sensation.). Normal capillary refill. Arms: Comments: Blue: area of reported numbness Skin: General: Skin is warm. Capillary Refill: Capillary refill takes less than 2 seconds. Coloration: Skin is not ashen or cyanotic. Findings: No abrasion, ecchymosis, erythema, lesion or rash. Neurological: Mental Status: She is alert and oriented to person, place, and time. Mental status is at baseline. GCS: GCS eye subscore is 4. GCS verbal subscore is 5. GCS motor subscore is 6. Cranial Nerves: No cranial nerve deficit, dysarthria or facial asymmetry. Sensory: Sensory deficit present. Motor: Weakness present. Gait: Gait normal. Comments: Right wrist drop with 0/5 strength with right wrist extension Right hand grips 4/5 strength, Unable to extend fingers. Unable to give thumbs up. Right wrist flexion 5/5 strength Right elbow : 5/5 strength with flexion/extension. Right shoulder : 5/5 strength with ROM: flexion/extesion, abduction, adduction. Myotomes of the left upper extremity 5/5 strength C5-T1 Myotomes of the lower extremities: 5/5 stregth L1-S1 Psychiatric: Mood and Affect: Mood normal. Behavior: Behavior normal. Thought Content: Thought content normal. Diagnostics Lab Results Labs Ordered and Resulted from Time of ED Arrival to Time of ED Departure - No data to display Imaging No orders to display Procedure Splint Placement Procedure: Splint Placement Indication: Right wrist drop Consent: Verbal Location: Right Wrist Preparation: Wounds were cleansed and dressed with a non-adherent bandage. Procedure detail: Splint was applied by Myself Splint type: Volar forearm Splint materilal: Fiberglass After placement I checked and adjusted the fit as needed to ensure proper positioning/fit Sensation and circulation are intact after splint placement Patient Status: The patient tolerated the procedure well: Yes. There were no complications. Independent Interpretation None ED Course Medications Administered Medications - No data to display Discussion of Management Neurology, Dr. Macedo General neurology, Dr. Yisel Arciniega Social Determinants of Health adding to complexity of care Stress/Adjustment Disorders ED Course ED Course as of 03/28/242157 [facility] Mar 28, 20242000 I obtained the history and examined the patient as noted above. 2012 I rechecked the patient and explained findings. [address] Macedo, Stroke Neurology, regarding the patient's presentation, findings, andplan of care. [address] Yisel Arciniega, general neurology, regarding the patient's presentation, findings, and plan of care. 2127 I rechecked the patient and explained findings. 2151 I applied the fiberglass splint to the patient's right wrist. Medical Decision Making / Diagnosis [facility] Diagnoses: None MIPS None MDM Hanane Ojeda is a 33 year old female presents with acute onset of right arm numbness and right wrist drop. Numbness is only present in the low the right elbow. She has no proximal weakness of herelbow range of motion her shoulder range of motion. Focal weakness only with wrist extension and minor handgrip and finger extension. All of her symptoms point to likely radial nerve palsy could be from could compression as she may have slept wrong on this however this is unclear. Although we considered CVA brachial plexus injury and central cord pathology of the neck symptoms are not consistent with these local areas. I did discuss case with both stroke neurology and general neurology and theyboth agree that they are not concerned regarding central pathology or spinal pathology and she doesnot require any emergent MRI imaging of her head or neck at this time. General neurology recommendsclose neurology follow-up with EMG studies. They requested that I place the patient in a cock up volar wrist splint. We do not have the Velcro type splint here thus I made an Ortho-Glass splint. She will wear this most of the time I am okay with her taking it off to shower but should wear this until she follows up with neurology. General Neurology did not feel that steroids would be beneficial initial for this patient. We discussed if she develops any further numbness weakness of other parts ofher body or worsening symptoms to return back to the emergency department. At this time patient's vi mimi signs are normal patient we discharged home with neurology follow-up. Disposition The patient was discharged. Diagnosis ICD-10-CM 1. Wrist drop, right M21.331 Adult Neurology Top Spotter Referral Discharge Medications New Prescriptions No medications on file Scribe Disclosure: I, Umberto Wagner, am serving as a scribe at 8:13 PM on 03/28/2024 to document services personally performed by Jagdeep Shipman PA-C based on my observations and the provider's statements to me. Jagdeep Shipman PA-C 03/28/242301 documented in this encounter Plan of Treatment Scheduled Referrals Name Type Priority Associated Diagnoses Orde r Schedule Adult Neurology Top Spotter Referral Referral Urgent: 3-5 Days Wrist drop, right Expected: 03/28/2024 (Approximate), Expires: 03/28/2025 documented as of this encounter Visit Diagnoses Diagnosis Wrist drop, right- Primary documented in this encounter Additional Health Concerns Assessment Noted Time PHQ-9 Depression Total Score: 0 06/07/20 22 4:21 PM CDT documented as of this encounter Care Teams Communication Manager Relationship Specialty [place] [address] [place] [address] PCP - General Family Practice 09/12/16 [facility] [address] [place] [address] Assigned PCP 10/26/23 documented as of this encounter
--- OUTSIDE RECORDS SUMMARY | 2024-04-14 16:55 | XMS_ITS | Encounter Summary ---
Author Organization [place] Address [facility] [facility] [place] [address] Care Team Providers Care Lithographic Press Feeder Name Role Phone Tone Galindo MD Primary Care Provider Sekou Machado MD Unavailable [phone] Ericka Hernandez APRN WRITER Unavailable Unavail able Tone Galindo MD Unavailable Ericka Hernandez APRN WRITER Unavailable Unavail able [facility] Unavail able Encounter Details Date Type Department Care Team (Late st Contact Info) Description 01/10/2022 MyC Medical Advice [facility] [address] [place] [address] Emilee Hurst Social History Tobacco Use Types Packs/Day Years [...] have Coronavirus / COVID-19? No / Unsure 01/07/2022 8:42 AM CDT documented as of this encounter Plan of Treatment Not on file documented as of this encounter Visit Diagnoses Not on filedocumented in this encounter Care Teams Lithographic Press Feeder Relationship Specialty [place] [address] [place] [address] PCP - General Family Practice 09/12/16 Sekou Machado MD [address] [place] [address] Assigned OBGYN Provider 10/03/21 Ericka Hernandez APRN WRITER [address] [place] [address] Assigned PCP 12/26/21 01/06/23 [place] [address] [place] [address] Assigned PCP 01/07/23 06/30/23 Ericka Hernandez APRN WRITER Assigned PCP 07/01/23 10/25/23 Clinic - [facility] [address] [place] [address] Assigned PCP 10/26/23 documented as of this encounter
--- OUTSIDE RECORDS SUMMARY | 2024-04-14 16:55 | XMS_ITS | Referral Summary ---
Author Organization [place] Address [facility] [place] [address] Care Team Providers Care Clerical And Administrative Workers Name Role Phone Tone Galindo MD Primary Care Provider [phone] [facility] - [facility] Unavail able Encounters Date Type Department Care Team Description 04/12/2024 Travel 04/11/2024 7:57 PM CDT - 04/12/2024 5:56 AM CDT Emergency [facility] Emergency Dept [address] [place] [address] Ricky Luz MD McDonald, Lindsey E, DO Substance abuse (H); Suicidal ideation; Hypokalemia; test positive Discharge Disposition: Home or Self Care 04/07/2024 Travel 04/07/2024 3:13 PM CDT - 04/07/2024 4:25 PM CDT Emergency [facility] Emergency Dept [address] [place] [address] Sekou Winston MD Acute pain of right knee; Knee mass, right Discharge Disposition: Home or Self Care 03/29/[address] [id number] Deysi Zabala RN [facility] F/U (Wrist Drop Right ) 03/28/2024 Travel 03/28/2024 7:36 PM CDT - 03/28/2024 10:01 PM CDT Emergency [facility] Emergency Dept [address] [place] [address] Jagdeep Shipman PA-C Wrist drop, right (Primary Dx) Discharge Disposition: Home or Self Care 01/29/2024 Transcribe Orders GENERIC EXTERNAL DATA DEPARTMENT Provider, Generic External Data Tinea pedis of both feet (Primary Dx) 01/26/2024 Medical Correspondence [facility] [address] [place] [address] Scan, Non-Provider from Last 3 Months Allergies Active Allergy Reactions Criticality Noted Date Comments Amoxicillin Nausea and Vomiting,Rash Low 09/12/2016 Latex Rash Low 05/27/2008 Shana Hives 05/13/2016 Nsaids Nausea and Vomiting Low 09/09/2019 Other Environmental Allergy 11/07/2023 Patient reports she gets hives from all metals Penicillins Nausea and Vomiting,Rash Low 09/12/2016 Medications Medication Sig Dispensed Refills Start Date End Date Status fluticasone (FLOVENT HFA) 44 MCG/ACT inhalerIndication s:Sinobronchitis Inhale 1 puff into the lungs 2 times daily 10.6 g 08/22/2023 Active methocarbamol (ROBAXIN) 500 MG tablet Take 1 tablet (500 mg) by mouth 4 times daily as needed for muscle spasms 8 tablet 04/07/2024 Active buprenorphine (SUBUTEX) 8 MG SUBL sublingual tablet Place 8 mg under the tongue 3 times daily Active gabapentin (NEURONTIN) 300 MG capsule Take 300 mg by mouth 3 times daily Active naproxen (NAPROSYN) 250 MG tablet Take 250 mg by mouth 2 times daily (with meals) Active senna-docusate (SENOKOT-S/JEREL LACE) 8.6-50 MG tablet Take 1 tablet by mouth daily Active buprenorphine (SUBUTEX) 8 MG SUBL sublingual tablet Place 4 mg under the tongue 5 times daily 4 Discontinue d(Med Rec(No AVS / No eCancel)) Vit-Fe Fumarate-FA (PNV PLUS MULTIVITAMIN) 27-1 MG TABS per tablet Take 1 tablet by mouth daily 4 Discontinue d(Med Rec(No AVS / No eCancel)) ondansetron (ZOFRAN-ODT) 4 MG ODT tabIndications:Pr enatal care, subsequent , unspecified trimester Place 1 tablet (4 mg) under the tongue every 6 hours as needed for nausea 120 tablet 3 10/29/2021 4 Discontinue d(Med Rec(No AVS / No eCancel)) methocarbamol (ROBAXIN) 500 MG tablet 2022 4 Discontinue d(Med Rec(No AVS / No eCancel)) methylPREDNISolon e (MEDROL DOSEPAK) 4 MG tablet therapy packIndications:Merari interiano Follow Package Directions 21 tablet 10/20/2022 4 Discontinue d(Med Rec(No AVS / No eCancel)) Lidocaine (LIDOCARE) 4 % Patch Place 1 patch onto the skin every 24 hours To prevent lidocaine toxicity, patient should be patch free for 12 hrs daily. 5 patch 01/18/2023 4 Discontinue d(Med Rec(No AVS / No eCancel)) acetaminophen (TYLENOL) 325 MG tablet Take 325-650 mg by mouth every 6 hours as needed for mild pain 4 Discontinue d(Med Rec(No AVS / No eCancel)) dextromethorphan (TUSSIN COUGH) 15 MG/5ML syrup Take 10 mLs by mouth 4 times daily as needed for cough 4 Discontinue d(Med Rec(No AVS / No eCancel)) albuterol (PROAIR HFA/PROVENTIL HFA/VENTOLIN HFA) 108 (90 Base) MCG/ACT inhalerIndication s:Moderate persistent reactive airway disease with acute exacerbation Inhale 2 puffs into the lungs every 6 hours as needed for shortness of breath, wheezing or cough 18 g 07/13/2023 4 Discontinue d(Med Rec(No AVS / No eCancel)) predniSONE (DELTASONE) 20 MG tabletIndications :Moderate persistent reactive airway disease with acute exacerbation Take 3 tabs by mouth daily x 3 days, then 2 tabs daily x 3 days, then 1 tab daily x 3 days, then 1/2 tab daily x 3 days. 20 tablet 07/13/2023 4 Discontinue d(Med Rec(No AVS / No eCancel)) mupirocin (BACTROBAN) 2 % external ointmentIndicatio ns:Impetigo Apply topically 3 times daily 15 g 08/22/2023 4 Discontinue d(Med Rec(No AVS / No eCancel)) oxyCODONE (ROXICODONE) 5 MG tablet Take 1 tablet (5 mg) by mouth every 6 hours as needed for breakthrough pain or severe pain 6 tablet 04/07/2024 SENNA-docusate sodium (SENNA S) 8.6-50 MG tablet Take 1-2 tablets by mouth 2 times daily as needed (if taking oxycodone) 30 tablet 04/07/2024 4 Discontinue d(Med Rec(No AVS / No eCancel)) Active Problems Problem Noted Date Diagnosed Date Cocaine abuse 04/12/2024 Preeclampsia in period 05/14/2022 Indication for care or intervention in labor or delivery 04/30/2022 Labor and delivery indication for care or interv ention 04/30/2022 Encounter for triage in patient 022 History of loop electrosurgi kris excision procedure (LEEP) of cervix affecting in third trimester 04/20/2022 Dental abscess 04/18/2020 Seizures 08/18/2017 Overview: Per neurology. EEG neg Edema, unspecified type 08/18/2017 Immunization deficiency 08/18/2017 H/O LEEP 06/09/2016 Overview: Pap History (from Care Everywhere): December 2007- Colpo with CIN1 December 2008- Pap with LSIL December 2009- Pap with ASCH, Colpo with CIN2/04 August 2010- Pap with ASCH March 2011 HSIL pap June 2011- Colpo with JYOTHI 2/04 July 2011- [facility] procedure with CIN2/3 @ age [age] October 2012- NIL June 2014- NIL pap, neg HR HPV 05/13/16 Normal pap cyto. Plan for 1 yr co-test, due 05/201712/20/17 Patient is lost to follow-up. 07/02/20 NIL pap, Neg HPV. Plan cotest in 1 year. 09/29/21 NIL pap, neg HR HPV. Plan 3 year cotest Opiate abuse, episodic 05/13/2016 Generalized anxiety disorder 05/22/2014 Overview: Diagnosis updated by automated process. Provider to review and confirm. Seasonal allergic rhinitis 03/12/2014 CARDIOVASCULAR SCREENING; LDL GOAL LESS THAN 130 04/03/2013 Elevated 17 OH progesterone--Endocrinology refer ral made 12/19/2012 Tobacco abuse 11/12/2012 Abdominal pain, unspecified abdominal location 0 10/29/2012 Overview: Problem list name updated by automated process. Provider to review Resolved Problems Problem Noted Date Diagnosed Date Resolved Date Encounter for triage in patient 04/06/2022 04/20/2022 Health Skilled Nursing 10/06/2014 03/18/2024 Overview: No active Care Coordination at this time. EMERGENCY CARE PLAN Presenting Problem Signs and Symptoms Treatment Plan Questions or concerns during clinic hours I will call the clinic directly Questions or concerns outside clinic hours I will call the 24 hour nurse line at [phone] Patient needs to schedule an appointment I will call the 24 hour scheduling team at [phone] or clinic directly Same day treatment I will call the clinic first, nurse line if after hours, urgent care and express care if needed Menometrorrhagia 10/29/2012 04/20/2022 Immunizations Name Administration Dates Next Due COVID-19 MONOVALENT 12+ (Pfizer) 02/20/2021 HPV Quadrivalent 11/14/2011,01/14/2008, 8 MMR 05/03/2022() Mantoux Tuberculin Skin Test 05/04/2016 TDAP (Adacel,Boostrix) 05/03/2022() TDAP Vaccine (Adacel) 03/12/2014 Social History Tobacco Use Types Packs/Day Years Used Date Smoking Tobacco: Every Day Cigarettes 0.3 10 Smokeless Tobacco: Never Tobacco Cessation:Ready to Q uit: Not Asked; Counseling Given: Not Answered Comments:Decreased from 1ppd to less than 6 cigarettes /d Alcohol Use Standard Drinks/Week Comments No 0 (1 standard drink = 0.6 oz pur e alcohol) PHQ-2 Answer Date Recorded PHQ-2 Score 0 06/07/2022 [place] Depression Scale Answer Date Recorded Last EPDS [...] AM CDT Sexual Orientation Not on file Last Filed Vital Signs Vital Sign Reading Time Taken Comments Blood Pressure 116/79 04/12/2024 5:45 AM CDT Pulse 82 04/12/2024 5:45 AM CDT Temperature 37.1 ??C (98.8 ??F) 04/11/2024 8:35 PM CD T Respiratory Rate 16 04/11/2024 9:00 PM CDT Oxygen Saturation 93% 04/12/2024 5:45 AM CDT Inhaled Oxygen Concentration - - Weight 81.6 kg (180 lb) 04/12/2024 5:21 AM CDT Height 160 cm (5' 3) 04/12/2024 5:21 AM CDT Body Mass Index 31.89 04/12/2024 5:21 AM CDT Plan of Treatment Not on file Procedures Procedure Name Priority Date/Time Associated Diagnosis Comments CBC WITH PLATELETS & DIFFERENTIAL STAT 04/11/2024 8:49 PM CDT EXTRA BLUE TOP TUBE STAT 04/11/2024 8 :49 PM CDT CBC WITH PLATELETS AND DIFFERENTIAL STAT 04/11/2024 8:49 PM CDT EXTRA TUBE STAT 04/11/2024 8:49 PM CDT ACETAMINOPHEN LEVEL STAT 04/11/2024 8 :49 PM CDT SALICYLATE LEVEL STAT 04/11/2024 8:49 PM CDT ETHYL ALCOHOL LEVEL STAT 04/11/2024 8 :49 PM CDT HCG QUANTITATIVE STAT 04/11/2024 8:49 PM CDT BASIC METABOLIC PANEL STAT 04/11/2024 8:49 PM CDT HIV ANTIGEN ANTIBODY COMBO Routine 09/29/2021 3:34 PM OPERATIONS/DISPATCH care, subsequent , unspecified trimester HEPATITIS C ANTIBODY Routine 09/29/2021 3:34 PM OPERATIONS/DISPATCH care, subsequent , unspecified trimester HPV HIGH RISK TYPES DNA CERVICAL Routine 09/29/2021 1:12 PM OPERATIONS/DISPATCH Encounter for supervision of normal first in first trimester GYNECOLOGIC CYTOLOGY Routine 09/29/2021 1:12 PM OPERATIONS/DISPATCH Encounter for supervision of normal first in first trimester from Last 3 Months or Most Recently Relevant to Health Maintenance Results * Extra Blue Top Tube (04/11/2024 8:49 PM CDT) Pathologist [facility] Hold Specimen [facility] 04/11/2024 10:01 PM CDT [facility] Blood BLOOD SPECIMEN / Unknown Venipuncture / Unknown 04/11/2024 8:49 PM CDT 04/11/2024 8:52 PM CDT Ricky Luz MD LAB - BLOOD ORDERABL ES [facility] Acute Care Lab [address] Lab (1st floor, no room number) [place] [address], [facility] * (ABNORMAL) CBC with platelets and differential (04/11/2024 8:49 PM CDT) WBC Count 15.9(H) 4.0 - 11.0 10e3/uL 04/11/2024 8:55 PM CDT [facility] RBC Count 4.34 3.80 - 5.20 10e6/uL 04/11/2024 8:55 PM CDT [facility] Hemoglobin 13.1 11.7 - 15.7 g/dL 04/11/2024 8:55 PM CDT [facility] Hematocrit 38.5 35.0 - 47.0 % 04/11/2024 8:55 PM CDT [facility] MCV 89 78 - 100 fL 04/11/2024 8:55 PM CDT [facility] MCH 30.2 26.5 - 33.0 pg 04/11/2024 8:55 PM CDT [facility] MCHC 34.0 31.5 - 36.5 g/dL 04/11/2024 8:55 PM CDT [facility] RDW 12.4 10.0 - 15.0 % 04/11/2024 8:55 PM CDT [facility] Platelet Count 322 150 - 450 10e3/uL 04/11/2024 8:55 PM CDT [facility] % Neutrophils 79 % 04/11/2024 8:55 PM CDT [facility] % Lymphocytes 13 % 04/11/2024 8:55 PM CDT [facility] % Monocytes 5 % 04/11/2024 8:55 PM CDT [facility] % Eosinophils 3 % 04/11/2024 8:55 PM CDT [facility] % Basophils 0 % 04/11/2024 8:55 PM CDT [facility] % Immature Granulocytes 0 % 04/11/2024 8:55 PM CDT [facility] NRBCs per 100 WBC 0 <1 /100 024 8:55 PM CDT [facility] Absolute Neutrophils 12.5(H) 1.6 - 8.3 10e3/uL 04/11/2024 8:55 PM CDT [facility] Absolute Lymphocytes 2.1 0.8 - 5.3 10e3/uL 04/11/2024 8:55 PM CDT [facility] Absolute Monocytes 0.8 0.0 - 1.3 10e3/uL 04/11/2024 8:55 PM CDT [facility] Absolute Eosinophils 0.4 0.0 - 0.7 10e3/uL 04/11/2024 8:55 PM CDT [facility] Absolute Basophils 0.1 0.0 - 0.2 10e3/uL 04/11/2024 8:55 PM CDT [facility] Absolute Immature Granulocytes 0.1 <=0.4 10e3/uL 04/11/2024 8:55 PM CDT [facility] Absolute NRBCs 0.0 10e3/uL 04/11/2024 8:55 PM CDT [facility] Blood BLOOD SPECIMEN / Unknown Venipuncture / Unknown 04/11/2024 8:49 PM CDT 04/11/2024 8:53 PM CDT Ricky Luz MD LAB - BLOOD ORDERABL ES [facility] Lab [address] Lab (1st floor, no room number) [address] * Salicylate level (04/11/2024 8:49 PM CDT) Salicylate <0.3 mg/dL 04/11/2024 9:53 PM CDT [facility] Comment: Salicylate Reference Range Therapeutic: ? 3-10 mg/dL Anti inflammatory: 15-30 mg/dL Blood BLOOD SPECIMEN / Unknown Venipuncture / Unknown 04/11/2024 8:49 PM CDT 04/11/2024 8:53 PM CDT Ricky Luz MD LAB - BLOOD ORDERABL ES Performing Organization Address [facility] Co de Phone Number [facility] Lab [address] Lab (1st floor, no room number) [address] * (ABNORMAL) HCG quantitative (04/11/2024 8:49 PM CDT) hCG Quantitative 9,758(H) <5 mIU/mL 04/11/20 9:20 PM CDT [facility] Comment: Adult: 0-5 mIU/mL for healthy non- person Neonates: Should be within normal ranges by 2 days after Blood BLOOD SPECIMEN / Unknown Venipuncture / Unknown 04/11/2024 8:49 PM CDT 04/11/2024 8:52 PM CDT Ricky Luz MD LAB - BLOOD ORDERABL ES [facility] Acute Care Lab [address] Lab (1st floor, no room number) [address] * Ethyl Alcohol Level (04/11/2024 8:49 PM CDT) Alcohol ethyl <0.01 <=0.01 g/dL 04/11/2024 9:14 PM CDT LABORATORY Blood BLOOD SPECIMEN / Unknown Venipuncture / Unknown 04/11/2024 8:49 PM CDT 04/11/2024 8:52 PM CDT Ricky Luz MD LAB - BLOOD ORDERABL ES [facility] Care Lab [address] Lab (1st floor, no room number) [address] * (ABNORMAL) Acetaminophen level (04/11/2024 8:49 PM CDT) Pathologist [facility] Acetaminophen <5.0(L) 10.0 - 30.0 ug/mL 04/11/2024 9:53 PM CDT LABORATORY Blood BLOOD SPECIMEN / Unknown Venipuncture / Unknown 04/11/2024 8:49 PM CDT 04/11/2024 8:53 PM CDT Ricky Luz MD LAB - BLOOD ORDERABL ES [facility] Acute Care Lab [address] Lab (1st floor, no room number) [address] * (ABNORMAL) Basic metabolic panel (04/11/2024 8:49 PM CDT) Sodium 138 135 - 145 mmol/L 04/11/2024 9:14 PM CDT LABORATORY Potassium 2.8(L) 3.4 - 5.3 mmol/L 04/11/2024 9:14 PM CDT LABORATORY Chloride 104 98 - 107 mmol/L 04/11/2024 9:14 PM CDT LABORATORY Carbon Dioxide (CO2) 22 22 - 29 mmol/L 04/11/2024 9:14 PM CDT [facility] Anion Gap 12 7 - 15 mmol/L 04/11/2024 9:14 PM CDT [facility] Urea Nitrogen 13.0 6.0 - 20.0 mg/dL 04/11/2024 9:14 PM CDT [facility] Creatinine 0.67 0.51 - 0.95 mg/dL 04/11/2024 9:14 PM CDT [facility] GFR Estimate >90 >60 mL/min/1.7 3m2 04/11/2024 9:14 PM CDT [facility] Comment:eGFR calculated usin 2020 CKD-EPI equation. Calcium 8.9 8.6 - 10.0 mg/dL 04/11/2024 9:14 PM CDT [facility] Glucose 110(H) 70 - 99 mg/dL 04/11/2024 9:14 PM CDT [facility] Blood BLOOD SPECIMEN / Unknown Venipuncture / Unknown 04/11/2024 8:49 PM CDT 04/11/2024 8:52 PM CDT Ricky Luz MD LAB - BLOOD ORDERABL ES LABORATORY [facility] Acute Care Lab [address] [facility] Lab (1st floor, no room number) [place] [address] * HIV Antigen Antibody Combo (09/29/2021 3:34 PM OPERATIONS/DISPATCH) HIV Antigen Antibody Combo Nonreactive Nonreactive 09/30/2021 11:43 AM OPERATIONS/DISPATCH SPECIALTY CORE/PROT/EN DO Comment:HIV-1 p24 Ag & HIV-1 /HIV-2 Ab Not Detected Blood STRUCTURE OF RIGHT UPPER LIMB / Unknown Venipuncture / Unknown 09/29/2021 3:34 PM OPERATIONS/DISPATCH 09/29/2021 3:34 PM OPERATIONS/DISPATCH Sekou Machado MD LAB - BLOOD OR DERABLES SPECIALTY CORE/PROT/ENDO [facility] Specialty Core Lab [address] [facility] [place] [address], [facility] [phone] * Hepatitis C antibody (09/29/2021 3:34 PM OPERATIONS/DISPATCH) Hepatitis C Antibody Nonreactive Nonreactive 09/30/2021 11:43 AM OPERATIONS/DISPATCH SPECIALTY CORE/PROT/EN DO Blood STRUCTURE OF RIGHT UPPER LIMB / Unknown Venipuncture / Unknown 09/29/2021 3:34 PM OPERATIONS/DISPATCH 09/29/2021 3:34 PM OPERATIONS/DISPATCH Narrative SPECIALTY CORE/PROT/ENDO - 09/30/2021 11:43 AM OPERATIONS/DISPATCH Assay performance characteristics have not been established for newborns, infants, and children. Sekou Machado MD LAB - BLOOD OR DERABLES SPECIALTY CORE/PROT/ENDO [facility] Specialty Core Lab [address] [facility], [address] [place] [address], [facility] [phone] * Pap screen with HPV - recommended age 30 - 65 years (09/29/2021 1:12 PM OPERATIONS/DISPATCH) Interpretation Negative for Intraepithelial Lesion or Malignancy (NILM) 10/01/2021 1:38 PM OPERATIONS/DISPATCH SPECIALTY LABS Comment Papanicolaou Test Limitations: Cervical cytology is a screening test with limited sensitivity, and regular screening is critical for cancer prevention. Pap tests are primarily effective for the diagnosis/prevent ion of squamous cell carcinoma, not adenocarcinoma or other cancers. 10/01/2021 1:38 PM OPERATIONS/DISPATCH SPECIAL[facility] LABS Specimen Adequacy Satisfactory for evaluation, endocervical/ivory sformation zone component present 10/01/2021 1:38 PM OPERATIONS/DISPATCH SPECIALTY LABS Clinical Information 10/01/2021 1:38 PM OPERATIONS/DISPATCH SPECIALTY LABS Reflex Testing Yes regardless of result 10/01/2021 1:38 PM OPERATIONS/DISPATCH SPECIALTY LABS Previous Abnormal? No[hx LEEP 2011 10/01/2021 1:38 PM OPERATIONS/DISPATCH SPECIALTY LABS Performing Labs The technical component of this testing was completed at [facility] 10/01/2021 1:38 PM OPERATIONS/DISPATCH SPECIALTY LABS Brushing CERVIX UTERI STRUCTURE / Unknown 09/29/2021 1:12 PM OPERATIONS/DISPATCH 09/29/2021 2:53 PM OPERATIONS/DISPATCH Sekou Machado MD LAB - [facility] [address] [place] [address], [facility] [phone] * HPV High Risk Types DNA Cervical (09/29/2021 1:12 PM OPERATIONS/DISPATCH) Other HR HPV Negative Negative 10/04/2021 2:41 PM OPERATIONS/DISPATCH MOLECULAR DIAGNOSTICS HPV16 DNA Negative Negative 10/04/2021 2:41 PM OPERATIONS/DISPATCH MOLECULAR DIAGNOSTICS HPV18 DNA Negative Negative 10/04/2021 2:41 PM OPERATIONS/DISPATCH MOLECULAR DIAGNOSTICS FINAL DIAGNOSIS This patient's sample is negative for HPV DNA. This test was developed and its performance characteristics determined by the [facility], Molecular Diagnostics Laboratory. It has not been cleared or approved by the FDA. The laboratory is regulated under CLIA as qualified to perform high-complexity testing. This test is used for clinical purposes. It should not be regarded as investigational or for research. METHODOLOGY: The [employer] [id number] system uses automated extraction, simultaneous amplification of HPV (L1 region) and beta-globin, followed by real time detection of fluorescent labeled HPV and beta globin using specific oligonucleotide probes. The test specifically identified types HPV 16 DNA and HPV 18 DNA while concurrently detecting the rest of the high risk types (31, 33, 35, 39, 45, 51, 52, 56, 58, 59, 66 or 68). COMMENTS: This test is not intended for use as a screening device for woman under age 30 with normal cervical cytology. Results should be correlated with cytologic and histologic findings. Close clinical followup is recommended. 10/04/2021 2:41 PM OPERATIONS/DISPATCH MOLECULAR DIAGNOSTICS Brushing CERVIX UTERI STRUCTURE / Unknown Non-blood Collection / Unknown 09/29/2021 1:12 PM OPERATIONS/DISPATCH 10/04/2021 8:15 AM OPERATIONS/DISPATCH Sekou Machado MD LAB - BLOOD OR DERABLES MOLECULAR DIAGNOSTICS [facility] Molecular Diagnostics Lab [address] [facility], [address] [place] [address], [facility] [phone] from Last 3 Months or Most Recently Relevant to Health Maintenance Advance Directives For more information, please contact: [phone] * Full Code (Latest Code Status on File) Date Activated Date Inactivated Comments 05/03/2022 9:41 AM 05/03/2022 4:46 PM All basic and advanced life-sustaining interventions are performed as appropriate Question Answer Comments Code status determined by: Discussion with kalani nt/ legal decision maker * Full Code Date Activated Date Inactivated Comments 04/30/2022 2:22 PM 05/01/2022 4:48 PM All basic an d advanced life-sustaining interventions are performed as appropriate Question Answer Comments Code status determined by: Discussion with patie nt/ legal decision maker * Full Code Date Activated Date Inactivated Comments 04/21/2020 8:36 AM 06/23/2021 2:05 PM Question Answer Comments Code status determined by: Discussion with patie nt/ legal decision maker * Full Code Date Activated Date Inactivated Comments 04/18/2020 12:31 PM 04/21/2020 8:36 AM All basic a nd advanced life-sustaining interventions are performed as appropriate Question Answer Comments Code status determined by: Discussion with patie nt/ legal decision maker Care Teams Clerical And Administrative Workers Relationship Specialty [place] [address] [place] [address] PCP - General Family Practice 09/12/16 Clinic [facility] [address] [place] [address] Assigned PCP 10/26/23
--- OUTSIDE RECORDS SUMMARY | 2024-04-14 16:55 | XMS_ITS | Encounter Summary ---
Author Organization [place] Address [facility] [place] [address] Care Team Providers Care Pipe Assembly Worker Name Role Phone Tone Galindo MD Primary Care Provider Sekou Machado MD Unavailable [phone] Ericka Hernandez APRN CHARCOAL KILN BURNER Unavailable Unavail able Tone Galindo MD Unavailable Ericka Hernandez APRN CHARCOAL KILN BURNER Unavailable Unavail able [facility] Unavail able Reason for Visit * Reason Onset Date Comments Care 04/19/2022 Encounter Details Date Type Department Care Team (Late st Contact Info) Description 04/19/2022 MyC Medical Advice [address] [place] [phone] Sekou Machado MD [address] [place] [address] Care Social History Tobacco Use Types Packs/Day Years Used Date Smoking Tobacco: Every Day Cigarettes 0.3 10 Smokeless Tobacco: Never Comments:Decreased from 1ppd to less than 6 cigarettes /d Alcohol Use Standard Drinks/Week Comments No 0 (1 standard drink = 0.6 oz pur e alcohol) PHQ-2 Answer Date Recorded PHQ-2 Score 0 04/20/2022 Comments Yes Sex and Gender Information Value Date Recorded Sex Assigned at Female 12/17/2021 7:56 AM CDT Gender Identity Female 12/17/2021 7:56 AM CDT Sexual Orientation Not on file COVID-19 Exposure Response Date Recorded In the last 10 days, have yo u been in contact with someone who was confirmed or suspected to have Coronavirus/COVID-19? No / Unsure 04/20/2022 10:03 AM CDT documented as of this encounter Miscellaneous Notes * Telephone Encounter - Kenya Wong MD - 04/25/2022 10:49 AM CDT Unfortunately, there is not much else that can be recommended. Diuretics in is unsafe, so not usually prescribed for this situation. I would also like for her to be conscientious of pre-eclampsia symptoms ie headaches, RUQ abdominalpain, visual changes, and if she does have this, then would recommend that she return to for blood pressure check. Kenya Wong MD * Telephone Encounter - Erinn Kelly RN - 04/25/2022 9:20 AM CDT 37w6d Pt sends mychart with what she states is severe swelling in her lower extremities. She is quite miserable. She has compressions stockings but swelling returns immediately upon removing them. Has appt tomorrow. Anything else we can suggest at this point besides elevating etc. BP Readings from Last 1 Encounters: 04/20/22 118/70 Erinn Huber WAREHOUSE DISTRIBUTION MANAGER documented in this encounter Plan of Treatment Not on file documented as of this encounter Visit Diagnoses Not on filedocumented in this encounter Care Teams Pipe Assembly Worker Relationship Specialty [place] [address] [place] [address] PCP - General Family Practice 09/12/16 Sekou Machado MD [address] [place] [address] Assigned OBGYN Provider 10/03/21 Ericka Hernandez APRN CHARCOAL KILN BURNER [address] [place] [address] Assigned PCP 12/26/21 01/06/23 [place] [address] [place], [place] [id number] Assigned PCP 01/07/23 06/30/23 Ericka Hernandez APRN CHARCOAL KILN BURNER Assigned PCP 07/01/23 10/25/23 [facility] [address] [place], [place] [id number] Assigned PCP 10/26/23 documented as of this encounter
--- OUTSIDE RECORDS SUMMARY | 2024-04-14 16:55 | XMS_ITS | Encounter Summary ---
Author Organization [place] Address [facility] [place] [address] Care Team Providers Care Body Builder Name Role Phone Tone Galindo MD Primary Care Provider [phone] Sekou Machado MD Unavailable Ericka Hernandez APRN INTEGRATED CIRCUIT FABRICATOR Unavailable Unavail able Tone Galindo MD Unavailable Ericka Hernandez APRN INTEGRATED CIRCUIT FABRICATOR Unavailable Unavail able [facility] Unavail able Reason for Visit * Reason Onset Date Comments Care 02/02/2022 Encounter Details Date Type Department Care Team (Late st Contact Info) Description 02/02/2022 MyC Medical Advice [facility] [address] [place] [address] Sekou Machado MD [address] [place] [address] Care Social History Tobacco Use Types Packs/Day [...] suspected to have Coronavirus/COVID-19? No / Unsure 01/21/2022 10:01 AM CDT documented as of this encounter Plan of Treatment Not on file documented as of this encounter Visit Diagnoses Not on filedocumented in this encounter Care Teams Body Builder Relationship Specialty [place] [address] [place] [address] PCP - General Family Practice 09/12/16 Sekou Machado MD [address] [place] [address] Assigned OBGYN Provider 10/03/21 Ericka Hernandez APRN INTEGRATED CIRCUIT FABRICATOR [address] [place] [address] Assigned PCP 12/26/21 01/06/23 [place] [address] [place] [address] Assigned PCP 01/07/23 06/30/23 Ericka Hernnadez APRN INTEGRATED CIRCUIT FABRICATOR Assigned PCP 07/01/23 10/25/23 Clinic - [facility] [address] [place] [address] Assigned PCP 10/26/23 documented as of this encounter
--- OUTSIDE RECORDS SUMMARY | 2024-04-14 16:55 | XMS_ITS | Encounter Summary ---
Author Organization [place] Address [facility] [place] [address] Care Team Providers Care Biomedical Scientist Name Role Phone Tone Galindo MD Primary Care Provider [phone] Sekou Machado MD Unavailable Tone Galindo MD Unavailable Ericka Hernandez APRN CAR VARNISHER Unavailable Unavail able Tone Galindo MD Unavailable Ericka Hernandez APRN CAR VARNISHER Unavailable Unavail able [facility] Unavail able Encounter Details Date Type Department Care Team (Late st Contact Info) Description 10/20/2021 MyC Medical Advice [address] [place] [phone] Julia Santana, RN Social History Tobacco Use Types Packs/Day Years [...] have Coronavirus / COVID-19? 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 documented as of this encounter Plan of Treatment Not on file documented as of this encounter Visit Diagnoses Not on filedocumented in this encounter Care Teams Biomedical Scientist Relationship Specialty [place] [address] [place] [address] PCP - General Family Practice 09/12/16 Sekou Machado MD [address] [place] [address] Assigned OBGYN Provider 10/03/21 [place] [address] [place] [address] Assigned PCP 10/10/21 12/25/21 Ericka Hernandez APRN CAR VARNISHER [address] [place] [address] Assigned PCP 12/26/21 01/06/23 [place] [address] [place] [address] Assigned PCP 01/07/23 06/30/23 Ericka Hernandez APRN CAR VARNISHER Assigned PCP 07/01/23 10/25/23 Clinic - [facility] [address] [place] [address] Assigned PCP 10/26/23 documented as of this encounter
--- OUTSIDE RECORDS SUMMARY | 2024-04-14 16:55 | XMS_ITS | Encounter Summary ---
Author Organization [place] Address [address] [facility] [place] [address] Care Team Providers Care .Net Architect Name Role Phone Tone Galindo MD Primary Care Provider [phone] Sekou Machado MD Unavailable [phone] Ericka Hernandez APRN MAILROOM SUPERVISOR Unavailable Unavail able Tone Galindo MD Unavailable Ericka Hernandez APRN MAILROOM SUPERVISOR Unavailable Unavail able Clinic - [facility] Unavail able Encounter Details Date Type Department Care Team (Late st Contact Info) Description 05/09/2022 MyC Medical Advice [facility] [address] [facility] [address] [place] [address] Sekou Machado MD [address] [place] [address] Social History Tobacco Use Types Packs/Day Years Used Date Smoking Tobacco: Every Day Cigarettes 0.3 10 Smokeless Tobacco: Never Comments:Decreased from 1ppd to less than 6 cigarettes /d Alcohol Use Standard Drinks/Week Comments No 0 (1 standard drink = 0.6 oz pur e alcohol) PHQ-2 Answer Date Recorded PHQ-2 Score 0 04/20/2022 [place] Depression Scale Answer Date Recorded Last EPDS Total Score Not on file 05/03/2022 The thought of harming myself has occurred to me . Never 05/03/2022 Sex and Gender Information Value Date Recorded Sex Assigned at Female 12/17/2021 7:56 AM CDT Gender Identity Female 12/17/2021 7:56 AM CDT Sexual Orientation Not on file COVID-19 Exposure Response Date Recorded In the last 10 days, have yo u been in contact with someone who was confirmed or suspected to have Coronavirus/COVID-19? No / Unsure 04/30/2022 10:46 AM CDT documented as of this encounter Miscellaneous Notes * Telephone Encounter - Bailey Bosch RN - 2022 3:32 PM CDT Spoke with the pt. She is unable to come into the clinic today, as she is in progreso. She will come in tomorrow am for a nurse only BP check and will see the on-call provider if needed. I did advise the pt that if her symptoms change, or are more bothersome for her, she needs to be evaluated in the ED. Pt agrees with this plan. Bailey Sidhu RN * Telephone Encounter - Ruthann Woodruff DO - 2022 3:12 PM CDT Lets call her and have her come to the clinic for a blood pressure check I can see her today. Dr. Ruthann Woodruff DO Obstetrics and Gynecology [facility] [place] * Telephone Encounter - Bailey Bosch RN - 2022 3:02 PM CDT Please address the my chart message. Pt had a vag delivery on 05/01/22. C/o increase swelling. BP elevated at her appt at the pain clinic today. Arianna Bosch RN * Telephone Encounter - Bailey Bosch RN - 05/10/2022 8:30 AM CDT documented in this encounter Plan of Treatment Not on file documented as of this encounter Visit Diagnoses Not on filedocumented in this encounter Care Teams .Net Architect Relationship Specialty [place] [address] [place] [address] PCP - General Family Practice 09/12/16 Sekou Machado MD [address] [place] [address] Assigned OBGYN Provider 10/03/21 Ericka Hernandez APRN MAILROOM SUPERVISOR [address] [place] [address] Assigned PCP 12/26/21 01/06/23 [place] [address] [place] [address] Assigned PCP 01/07/23 06/30/23 Ericka Hernandez APRN MAILROOM SUPERVISOR Assigned PCP 07/01/23 10/25/23 [facility] [address] [place] [address] Assigned PCP 10/26/23 documented as of this encounter
--- OUTSIDE RECORDS SUMMARY | 2024-04-14 16:55 | XMS_ITS | Encounter Summary ---
Author Organization [place] Address [facility] [place] [address] Care Team Providers Care Ict Managers Name Role Phone Tone Galindo MD Primary Care Provider [phone] Sekou Machado MD Unavailable Tone Galindo MD Unavailable Ericka Hernandez APRN NEWS VIDEOTAPE EDITOR Unavailable Unavail able Tone Galindo MD Unavailable Ericka Hernandez APRN NEWS VIDEOTAPE EDITOR Unavailable Unavail able [facility] Unavail able Encounter Details Date Type Department Care Team (Late st Contact Info) Description 10/21/2021 MyC Medical Advice [address] [place] [phone] Julia Santana, RN Social History Tobacco [...] COVID-19? No / Unsure 10/14/2021 9:19 AM ACCOUNTS RECEIVABLE ASSOCIATE documented as of this encounter Plan of Treatment Not on file documented as of this encounter Visit Diagnoses Not on filedocumented in this encounter Care Teams Ict Managers Relationship Specialty [place] [address] [place] [address] PCP - General Family Practice 09/12/16 Sekou Machado MD [address] [place] [address] Assigned OBGYN Provider 10/03/21 [place] [address] [place] [address] Assigned PCP 10/10/21 12/25/21 Ericka Hernandez APRN NEWS VIDEOTAPE EDITOR [address] [place] [address] Assigned PCP 12/26/21 01/06/23 [place] [address] [place] [address] Assigned PCP 01/07/23 06/30/23 Ericka Hernandez APRN NEWS VIDEOTAPE EDITOR Assigned PCP 07/01/23 10/25/23 Clinic - [facility] [address] [place] [address] Assigned PCP 10/26/23 documented as of this encounter
--- OUTSIDE RECORDS SUMMARY | 2024-04-14 16:55 | XMS_ITS | Encounter Summary ---
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 04/12/2024 midazolam (VERSED) injection 5 mg (COMPLETED) 5 mg, Intramuscular, Administer over 2 Minutes, ONCE, On Dana 04/11/24 at 2020, For 1 dose, This drug may cause significant respiratory depression. Monitor respiratory status and vital signs carefully for 1 hour after each dose. 2029 ($Given - Provider: Nataly Olivares RN) potassium chloride syl ER (KLOR-CON M20) CR tablet 40 mEq (COMPLETED) 40 mEq, Oral, ONCE, On Dana 04/11/24 at 2215, For 1 dose, DO NOT CRUSH 0518 ($Given - Provi awrren: Nataly Olivares RN) PRN Medication Order 04/10/2024 04/11/2024 04/12/2024 OLANZapine zydis (zyPREXA) ODT tab 10 mg 10 mg, Oral, 2 TIMES DAILY PRN, agitation, associated with psychosis or elise., Starting on Dana 04/11/24 at 2018, Doses should be at least 2 hours apart. With dry hands, peel back foil backing and gently remove tablet. Do not push oral disintegrating tablet through foil backing. Administer immediately on tongue and oral disintegrating tablet dissolves in seconds, then swallow with saliva. Liquid not required. documented in this encounter Additional Health Concerns Assessment Noted Time PHQ-9 Depression Total Score: 0 06/07/20 22 4:21 PM CDT documented as of this encounter Care Teams Ultrasound Tech Relationship Specialty [place] [address] [place] [address] PCP - General Family Practice 09/12/16 Formerly [facility] [address] [place] [address] Assigned PCP 10/26/23 documented as of this encounter
--- OUTSIDE RECORDS SUMMARY | 2024-04-14 16:55 | XMS_ITS | Encounter Summary ---
Author Organization [facility] Address [address] [facility] [place] [address] Care Team Providers Care Supervisor Vine Fruit Farming Name Role Phone Tone Galindo MD Primary Care Provider [phone] [facility] Encounter Details Date Type Department Care Team (Latest Contact Info) Description 03/28/2024 Travel Social History Tobacco Use Types Packs/Day Years Used Date Smoking Tobacco: Every Day Cigarettes 0.3 10 Smokeless Tobacco: Never Comments:Decreased from 1ppd to less than 6 cigarettes /d Alcohol Use Standard Drinks/Week Comments No 0 (1 standard drink = 0.6 oz pur e alcohol) PHQ-2 Answer Date Recorded PHQ-2 Score 0 06/07/2022 [place] Depression Scale Answer Date Recorded Last EPDS [...] documented as of this encounter Care Teams Supervisor [employer] Farm[employer] Relationship Specialty [place] [address] [place] [address] PCP - General Family Practice 09/12/16 Clinic - [facility] [address] [place] [address] Assigned PCP 10/26/23 documented as of this encounter
--- OUTSIDE RECORDS SUMMARY | 2024-04-14 16:55 | XMS_ITS | Encounter Summary ---
Author Organization [facility] Address [address] [facility] [place] [address] Care Team Providers Care Medical Record Librarians Teacher Name Role Phone Tone Galindo MD Primary Care Provider [phone] Clinic - [facility] Unavail able Encounter Details Date Type Department Care Team (Late st Contact Info) Description 01/26/2024 Medical Correspondence [facility] [address] [place] [address] Scan, Non-Provider Social History Tobacco Use Types Packs/Day Years Used Date Smoking Tobacco: Every Day Cigarettes 0.3 10 Smokeless Tobacco: Never Comments:Decreased from 1ppd to less than 6 cigarettes /d Alcohol Use Standard Drinks/Week Comments No 0 (1 standard drink = 0.6 oz pur e alcohol) PHQ-2 Answer Date Recorded PHQ-2 Score 0 06/07/2022 [place] Depression Scale Answer Date Recorded Last EPDS [...] documented as of this encounter Care Teams Medical Record Librarians Teacher Relationship Specialty [place] [address] [place] [address] PCP - General Family Practice 09/12/16 Clinic - [facility] [id number] [place] [address] Assigned PCP 10/26/23 documented as of this encounter
--- OUTSIDE RECORDS SUMMARY | 2024-04-14 16:55 | XMS_ITS | Encounter Summary ---
Author Organization [facility] Address [address] [place] [address] Care Team Providers Care Casting Machine Set Up Operator Name Role Phone Tone Galindo MD Primary Care Provider [phone] [facility] Unavail able Encounter Details Date Type Department Care Team (Latest Contact Info) Description 04/12/2024 Travel Social History Tobacco Use Types Packs/Day Years Used Date Smoking Tobacco: Every Day Cigarettes 0.3 10 Smokeless Tobacco: Never Comments:Decreased from 1ppd to less than 6 cigarettes /d Alcohol Use Standard Drinks/Week Comments No 0 (1 standard drink = 0.6 oz pur e alcohol) PHQ-2 Answer Date Recorded PHQ-2 Score 0 06/07/2022 [place] Depression Scale Answer Date Recorded Last EPDS [...] documented as of this encounter Care Teams Casting Machine Set Up Operator Relationship Specialty [place] [address] [place] [address] PCP - General Family Practice 09/12/16 Clinic - [facility] [address] [place] [address] Assigned PCP 10/26/23 documented as of this encounter
--- OUTSIDE RECORDS SUMMARY | 2024-04-14 16:55 | XMS_ITS | Encounter Summary ---
Author Organization [facility] Address [address] [facility] [address] Care Team Providers Care Rough Rounder Name Role Phone Tone Galindo MD Primary Care Provider [phone] Clinic - [facility] Unavail able Reason for Referral * Consultation (Routine) - Pending Review Specialty Diagnoses / Procedures Referred By Blanche cardenas Referred To Contact Diagnoses Tinea pedis of both feet Taniya Hamlin PA-C [facility] [address] [place] [address] Referral ID Status Reason Start Date Expiration Date V isits Requested Visits Authorized [id number] Pending Review 01/29/2024 01/28/2025 1 1 Question Answer Consult Type: Foot/Ankle Type: Per Protocol Scheduling Instructions: [facility] Orthopedic Senior Officer will call you to coordinate your care as prescribed by your provider. A outbound telemarketing representative will call you within 2 business days to help you schedule your appointment, or you may contact the Senior Officer Paste Maker at: . Additional Information: Patient prefers [place] location Comments Referral to Podiatry for Tinea Pedis from Taniya Hamlin PA-C at [facility]. [phone] [facility] Orthopedic Senior Officer will call you to coordinate your care as prescribed by your provider. A outbound telemarketing representative will call you within 2 business days to help you schedule your appointment, or you may contact the Senior Officer Paste Maker at: . Encounter Details Date Type Department Care Team (Late st Contact Info) Description 01/29/2024 Transcribe Orders GENERIC EXTERNAL DATA DEPARTMENT Provider, Generic External Data Tinea pedis of both feet (Primary Dx) Social History Tobacco Use Types Packs/Day Years Used Date Smoking Tobacco: Every Day Cigarettes 0.3 10 Smokeless Tobacco: Never Comments:Decreased from 1ppd to less than 6 cigarettes /d Alcohol Use Standard Drinks/Week Comments No 0 (1 standard drink = 0.6 oz pur e alcohol) PHQ-2 Answer Date Recorded PHQ-2 Score 0 06/07/2022 [place] Depression Scale Answer Date Recorded Last EPDS [...] as of this encounter Plan of Treatment Scheduled Referrals Name Type Priority Associated Diagnoses Orde r Schedule Orthopedic Senior Officer Referral Referral Routine Tinea pedis of both feet Expected: 01/29/2024 (Approximate), Expires: 01/28/2025 documented as of this encounter Visit Diagnoses Diagnosis Tinea pedis of both feet- Primary documented in this encounter Additional Health Concerns Assessment Noted Time PHQ-9 Depression Total Score: 0 06/07/20 22 4:21 PM CDT documented as of this encounter Care Teams Rough Rounder Relationship Specialty [place] [address] [place] [address] PCP - General Family Practice 09/12/16 Clinic - [facility] [address] [place] [address] Assigned PCP 10/26/23 documented as of this encounter
--- OUTSIDE RECORDS SUMMARY | 2024-04-14 16:55 | XMS_ITS | Encounter Summary ---
Author Organization [facility] Address [address] [facility] [place] [address] Care Team Providers Care Recreation Center Director Name Role Phone Tone Galindo MD Primary Care Provider [phone] [facility] Unavail able Encounter Details Date Type Department Care Team (Latest Contact Info) Description 04/07/2024 Travel Social History Tobacco Use Types Packs/Day Years Used Date Smoking Tobacco: Every Day Cigarettes 0.3 10 Smokeless Tobacco: Never Comments:Decreased from 1ppd to less than 6 cigarettes /d Alcohol Use Standard Drinks/Week Comments No 0 (1 standard drink = 0.6 oz pur e alcohol) PHQ-2 Answer Date Recorded PHQ-2 Score 0 06/07/2022 [place] Depression Scale Answer Date Recorded Last EPDS [...] documented as of this encounter Care Teams Recreation Center Director Relationship Specialty [place] [address] [place] [address] PCP - General Family Practice 09/12/16 Clinic - [facility] [address] [place] [address] Assigned PCP 10/26/23 documented as of this encounter
--- OUTSIDE RECORDS SUMMARY | 2024-04-14 16:55 | XMS_ITS | Clinical Summary ---
Author Organization [facility] Address [address] [facility] [place] [address] Care Team Providers Care Healthcare Social Worker Name Role Phone Tone Galindo MD Primary Care Provider [phone] [facility] Unavail able Allergies Active Allergy Reactions Criticality Noted Date [...] pain or severe pain 6 tablet 04/07/2024 4 SENNA-docusate sodium (SENNA S) 8.6-50 MG tablet [...] for triage in patient 04/06/2022 04/20/2022 Health Nursing Home 10/06/2014 03/18/2024 Overview: No active Care Coordination at this time. EMERGENCY CARE PLAN Presenting Problem Signs and Symptoms Treatment Plan Questions or concerns during clinic hours I will call the clinic directly Questions or concerns outside clinic hours I will call the 24 hour nurse line at [phone] Patient needs to schedule an appointment I will call the 24 hour scheduling team at [phone] or clinic directly Same day treatment I will call the clinic first, nurse line if after hours, urgent care and express care if needed Menometrorrhagia 10/29/2012 04/20/2022 Encounters Date Type Department Care Team Description 04/12/2024 Travel 04/11/2024 7:57 PM CDT - 04/12/2024 5:56 AM CDT [facility] Emergency Dept [address] [place] [phone] Ricky Luz MD McDonald, Lindsey E, DO Substance abuse (H); Suicidal ideation; Hypokalemia; test positive Discharge Disposition: Home or Self Care 04/07/2024 3:13 PM CDT - 04/07/2024 4:25 PM CDT [facility] Emergency Dept [address] [place] [address] Sekou Winston MD Acute pain of right knee; Knee mass, right Discharge Disposition: Home or Self Care 04/07/2024 Travel 03/29/[address] [phone] Deysi Zabala RN Hospital F/U (Wrist Drop Right ) 03/28/2024 7:36 PM CDT - 03/28/2024 10:01 PM CDT [facility] Emergency Dept [address] [place] [address] [phone] Jagdeep Shipman, GALI Wrist drop, right (Primary Dx) Discharge Disposition: Home or Self Care 03/28/2024 Travel 01/29/2024 Transcribe Orders GENERIC EXTERNAL DATA DEPARTMENT Provider, Generic External Data Tinea pedis of both feet (Primary Dx) 01/26/2024 Medical Correspondence [facility] [address] [place] [address] Scan, Non-Provider from Last 3 Months Immunizations Name Administration Dates Next Due COVID-19 MONOVALENT 12+ (Pfizer) 02/20/2021 HPV Quadrivalent 11/14/2011,01/14/2008, 8 MMR 05/03/2022() Mantoux Tuberculin Skin Test 05/04/2016 TDAP (Adacel,Boostrix) 05/03/2022() TDAP Vaccine (Adacel) 03/12/2014 Family History Medical History Relation Comments Genetic Disorder Father Darren Annalphonse are Breast Cancer Maternal Aunt 2010. Gynecology Mother Serve bleeding. Had hysterectomy around 2002 Relation Status Comments Brother Alive Father Alive Maternal Aunt Maternal Grandfather Maternal Grandmother Mother Alive Paternal Grandfather Alive Paternal Grandmother Alive Social History Tobacco Use Types Packs/Day Years Used Date Smoking Tobacco: Every Day Cigarettes 0.3 10 Smokeless Tobacco: Never Tobacco Cessation:Ready to Q uit: Not Asked; Counseling Given: Not Answered Comments:Decreased from 1ppd to less than 6 cigarettes /d Alcohol Use Standard Drinks/Week Comments No 0 (1 standard drink = 0.6 oz pur e alcohol) PHQ-2 Answer Date Recorded PHQ-2 Score 0 06/07/2022 [place] Depression Scale Answer Date Recorded Last EPDS [...] 04/12/2024 5:21 AM CDT Plan of Treatment Health Maintenance Due Date Last Done Comments ADVANCE CARE PLANNING 1991 ASTHMA ACTION PLAN 1991 ASTHMA CONTROL TEST 1991 Pneumococcal Vaccine: Pediatrics (0 to 5 Years) and At-Risk Patients (6 to 64 Years) (1 of 2 - PCV) 1997 HEPATITIS B IMMUNIZATION (1 of 3 - 19+ 3-dose series) 2010 NICOTINE/TOBACCO CESSATION COUNSELING Q 1 YR 07/02/2021 07/02/2020, 05/13/2016, 06/23/2014, Additional history exists YEARLY PREVENTIVE VISIT 07/02/2021 07/02/20 20, 05/13/2016, 06/23/2014 ANNUAL REVIEW OF HM ORDERS 07/02/2022 07/02/2021, COVID-19 Vaccine ( season) 2023 03/10/2021, 02/20/2021 PHQ-2 (once per calendar year) 2023 06/07/2022, 06/07/2022, 04/20/2022, Additional history exists DTAP/TDAP/TD IMMUNIZATION (2 - Td or Tdap) 03/12/2024 03/12/2014 INFLUENZA VACCINE (#1) 2024 HPV FOLLOW-UP 09/29/2024 09/29/2021, 100 10/2019, 02/13/2012 PAP FOLLOW-UP 09/29/2024 09/29/2021, 100 10/2019, 05/13/2016, Additional history exists HPV IMMUNIZATION Completed 11/14/2011, , 11/14/2007 HEPATITIS C SCREENING Completed 09/29/2021 HIV SCREENING Completed 09/29/2021 PAP Discontinued 09/29/2021, 100 10/2019, 05/13/2016, Additional history exists IPV IMMUNIZATION Aged Out No longer e ligible based on patient's age to complete this topic MENINGITIS IMMUNIZATION Aged Out No l onger eligible based on patient's age to complete this topic RSV MONOCLONAL ANTIBODY Aged Out No l onger eligible based on patient's age to complete this [...] ANTIGEN ANTIBODY COMBO Routine 09/29/2021 3:34 PM PROVIDER RELATIONS ADVOCATE care, subsequent , unspecified trimester HEPATITIS C ANTIBODY Routine 09/29/2021 3:34 PM PROVIDER RELATIONS ADVOCATE care, subsequent , unspecified trimester HPV HIGH RISK TYPES DNA CERVICAL Routine 09/29/2021 1:12 PM PROVIDER RELATIONS ADVOCATE Encounter for supervision of normal first in first trimester GYNECOLOGIC CYTOLOGY Routine 09/29/2021 1:12 PM PROVIDER RELATIONS ADVOCATE Encounter for supervision of normal first in first trimester from Last 3 Months or Most Recently Relevant to Health Maintenance Results * Extra Blue Top Tube (04/11/2024 8:49 PM CDT) Pathologist [facility] Hold Specimen [facility] 04/11/2024 10:01 PM CDT [facility] Blood BLOOD SPECIMEN / Unknown Venipuncture / Unknown 04/11/2024 8:49 PM CDT 04/11/2024 8:52 PM CDT Ricky Luz MD LAB - BLOOD ORDERABL ES LABORATORY [facility] Acute [facility] Lab [address] [facility] Lab (1st floor, no room number) [place] [address], [facility] * (ABNORMAL) CBC with platelets and differential [...] - BLOOD ORDERABL ES Performing Organization Address [facility]/ZIP Co de Phone Number [facility] Lab [address] Lab (1st floor, no room number) [address] [place] [address] * Salicylate level (04/11/2024 8:49 PM CDT) Salicylate <0.3 mg/dL 04/11/2024 9:53 PM CDT [facility] Comment: Salicylate Reference Range Therapeutic: ? 3-10 mg/dL Anti inflammatory: 15-30 mg/dL Blood BLOOD SPECIMEN / Unknown Venipuncture / Unknown 04/11/2024 8:49 PM CDT 04/11/2024 8:53 PM CDT Ricky Luz MD LAB - BLOOD ORDERABL ES Performing Organization Address [facility] Co de Phone Number [facility] [address] Lab (1st floor, no room number) [place] [phone] [place] [address] * (ABNORMAL) HCG quantitative (04/11/2024 8:49 PM [...] - BLOOD ORDERABL ES Performing Organization Address [facility]/ZIP Co de Phone Number [facility] Lab [address] Lab (1st floor, no room number) [address] * Ethyl Alcohol Level (04/11/2024 8:49 PM CDT) Alcohol ethyl <0.01 <=0.01 g/dL 04/11/2024 9:14 PM CDT LABORATORY Blood BLOOD SPECIMEN / Unknown Venipuncture / Unknown 04/11/2024 8:49 PM CDT 04/11/2024 8:52 PM CDT Ricky Luz MD LAB - BLOOD ORDERABL ES Performing Organization Address [facility]/ZIP Co de Phone Number [facility] [address] Lab (1st floor, no room number) [address] * (ABNORMAL) Acetaminophen level (04/11/2024 8:49 PM CDT) Acetaminophen <5.0(L) 10.0 - 30.0 ug/mL 04/11/2024 9:53 PM CDT LABORATORY Blood BLOOD SPECIMEN / Unknown Venipuncture / Unknown 04/11/2024 8:49 PM CDT 04/11/2024 8:53 PM CDT Ricky Luz MD LAB - BLOOD ORDERABL ES Performing Organization Address [facility]/ZIP Co de Phone Number [facility] [address] Lab (1st floor, no room number) [address] * (ABNORMAL) Basic metabolic panel (04/11/2024 [...] - 10.0 mg/dL 04/11/2024 9:14 PM CDT LABORATORY Glucose 110(H) 70 - 99 mg/dL 04/11/2024 9:14 PM CDT LABORATORY Blood BLOOD SPECIMEN / Unknown Venipuncture / Unknown 04/11/2024 8:49 PM CDT 04/11/2024 8:52 PM CDT Ricky Luz MD LAB - BLOOD ORDERABL ES LABORATORY [facility] Lab [address] [facility] Lab (1st floor, no room number) [place] [address] * HIV Antigen Antibody Combo (09/29/2021 3:34 PM PROVIDER RELATIONS ADVOCATE) HIV Antigen Antibody Combo Nonreactive Nonreactive 09/30/2021 11:43 AM PROVIDER RELATIONS ADVOCATE SPECIALTY CORE/PROT/EN DO Comment:HIV-1 p24 Ag & HIV-1 /HIV-2 Ab Not Detected Blood STRUCTURE OF RIGHT UPPER LIMB / Unknown Venipuncture / Unknown 09/29/2021 3:34 PM PROVIDER RELATIONS ADVOCATE 09/29/2021 3:34 PM PROVIDER RELATIONS ADVOCATE Sekou Machado MD LAB - BLOOD OR DERABLES SPECIALTY CORE/PROT/ENDO [facility] Specialty Core Lab [address] [facility] [place] [address], [facility] [phone] * Hepatitis C antibody (09/29/2021 3:34 PM PROVIDER RELATIONS ADVOCATE) Hepatitis C Antibody Nonreactive Nonreactive 09/30/2021 11:43 AM PROVIDER RELATIONS ADVOCATE SPECIALTY CORE/PROT/EN DO Blood STRUCTURE OF RIGHT UPPER LIMB / Unknown Venipuncture / Unknown 09/29/2021 3:34 PM PROVIDER RELATIONS ADVOCATE 09/29/2021 3:34 PM PROVIDER RELATIONS ADVOCATE Narrative SPECIALTY CORE/PROT/ENDO - 09/30/2021 11:43 AM PROVIDER RELATIONS ADVOCATE Assay performance characteristics have not been established for newborns, infants, and children. Sekou Machado MD LAB - BLOOD OR DERABLES SPECIALTY CORE/PROT/ENDO [facility] Specialty Core Lab [address] [facility], [address] [place] [address], [facility] [phone] * Pap screen with HPV - recommended age 30 - 65 years (09/29/2021 1:12 PM PROVIDER RELATIONS ADVOCATE) Pathologist [facility] Interpretation Negative for Intraepithelial Lesion or Malignancy (NILM) 10/01/2021 1:38 PM PROVIDER RELATIONS ADVOCATE SPECIALTY LABS Comment Papanicolaou Test Limitations: Cervical cytology is a screening test with limited sensitivity, and regular screening is critical for cancer prevention. Pap tests are primarily effective for the diagnosis/prevent ion of squamous cell carcinoma, not adenocarcinoma or other cancers. 10/01/2021 1:38 PM PROVIDER RELATIONS ADVOCATE SPECIALTY LABS Specimen Adequacy Satisfactory for evaluation, endocervical/ivory sformation zone component present 10/01/2021 1:38 PM PROVIDER RELATIONS ADVOCATE SPECIALTY LABS Clinical Information 10/01/2021 1:38 PM PROVIDER RELATIONS ADVOCATE SPECIALTY LABS Reflex Testing Yes regardless of result 10/01/2021 1:38 PM PROVIDER RELATIONS ADVOCATE SPECIALTY LABS Previous Abnormal? No[hx LEEP 2011 10/01/2021 1:38 PM PROVIDER RELATIONS ADVOCATE SPECIALTY LABS Performing Labs The technical component of this testing was completed at [facility] 10/01/2021 1:38 PM PROVIDER RELATIONS ADVOCATE SPECIALTY LABS Brushing CERVIX UTERI STRUCTURE / Unknown 09/29/2021 1:12 PM PROVIDER RELATIONS ADVOCATE 09/29/2021 2:53 PM PROVIDER RELATIONS ADVOCATE Sekou TORRES - [facility] [address] [place] [address], [facility] [phone] * HPV High Risk Types DNA Cervical (09/29/2021 1:12 PM PROVIDER RELATIONS ADVOCATE) Other HR HPV Negative Negative 10/04/2021 2:41 PM PROVIDER RELATIONS ADVOCATE MOLECULAR DIAGNOSTICS HPV16 DNA Negative Negative 10/04/2021 2:41 PM PROVIDER RELATIONS ADVOCATE MOLECULAR DIAGNOSTICS HPV18 DNA Negative Negative 10/04/2021 2:41 PM PROVIDER RELATIONS ADVOCATE MOLECULAR DIAGNOSTICS FINAL DIAGNOSIS This patient's sample is negative for HPV DNA. This test was developed and its performance characteristics determined by the [facility]. It has not been [...] clinical followup is recommended. 10/04/2021 2:41 PM PROVIDER RELATIONS ADVOCATE MOLECULAR DIAGNOSTICS Brushing CERVIX UTERI STRUCTURE / Unknown Non-blood Collection / Unknown 09/29/2021 1:12 PM PROVIDER RELATIONS ADVOCATE 10/04/2021 8:15 AM PROVIDER RELATIONS ADVOCATE Sekou Machado MD LAB - BLOOD OR DERABLES MOLECULAR DIAGNOSTICS [facility] Molecular Diagnostics Lab [address] [facility] [place] [address], [facility] [phone] from Last 3 Months or Most Recently Relevant to Health Maintenance Advance Directives For more information, please contact: [phone] * Full Code (Latest Code Status on [...] patie nt/ legal decision maker Care Teams Healthcare Social Worker Relationship Specialty [place] [address] [place] [address] PCP - General Family Practice 09/12/16 Clinic - [facility] [address] [place] [address] Assigned PCP 10/26/23
--- OUTSIDE RECORDS SUMMARY | 2024-04-14 16:55 | XMS_ITS | Encounter Summary ---
Author Organization [place] Address [facility]0 [facility] [place] [address] Care Team Providers Care Associate Editor Name Role Phone Tone Galindo MD Primary Care Provider Clinic - [facility] Unavail able Reason for Visit * Reason Comments Knee Pain Encounter Details Date Type Department Care Team (Late st Contact Info) Description 04/07/2024 3:13 PM CDT - 04/07/2024 4:25 PM CDT Emergency [facility] Emergency Dept [address] [place] [address] Sekou Winston MD [facility] [address] [place], [place] [address] Acute pain of right knee; Knee mass, right Discharge Disposition: Home or Self Care Social History Tobacco Use Types Packs/Day Years Used Date Smoking Tobacco: Every Day Cigarettes 0.3 10 Smokeless Tobacco: Never Comments:Decreased from 1ppd to less than 6 cigarettes /d Alcohol Use Standard Drinks/Week Comments No 0 (1 standard drink = 0.6 oz pur e alcohol) PHQ-2 Answer Date Recorded PHQ-2 Score 0 06/07/2022 [place]ford Depression Scale Answer Date Recorded Last EPDS [...] Sign Reading Time Taken Comments Blood Pressure 129/88 04/07/2024 1:02 PM CDT Pulse 80 04/07/2024 1:02 PM CDT Temperature 36.8 ??C (98.2 ??F) 04/07/2024 1:02 PM CD T Respiratory Rate 16 04/07/2024 1:02 PM CDT Oxygen Saturation 100% 04/07/2024 1:02 PM CDT Inhaled Oxygen Concentration - - Weight - - Height - - Body Mass Index - - documented in this encounter Discharge Instructions * Discharge Instructions* Sekou Winston MD - 04/07/2024 4:15 PM CDT 1. -Take acetaminophen 500 to 1000 mg by mouth every 4 to 6 hours as needed for pain or fever. Do not take more than 4000 mg in 24 hours. Do not take within 6 hours of another acetaminophen containing medication such as norco (vicodin) or percocet. 2. Use ice as needed for pain and swelling. 3. Elevate extremity to help with swelling. 4. Follow-up with your primary orthopedist this coming week. 5. You may return to the ED as needed for new or worsening symptoms such as reinjury, severe and uncontrollable pain, focal weakness, severe numbness and tingling, any other concerning symptoms. documented in this encounter Medications at Time of Discharge Medication Sig Dispensed Refills Start Date End Date fluticasone (FLOVENT HFA) 44 MCG/ACT inhalerIndications:Si nobronchitis Inhale 1 puff into the lungs 2 times daily 10.6 g 08/22/2023 methocarbamol (ROBAXIN) 500 MG tablet Take 1 tablet (500 mg) by mouth 4 times daily as needed for muscle spasms 8 tablet 04/07/2024 oxyCODONE (ROXICODONE) 5 MG tablet Take 1 tablet (5 mg) by mouth every 6 hours as needed for breakthrough pain or severe pain 6 tablet 04/07/2024 04/10/2024 acetaminophen (TYLENOL) 325 MG tablet Take 325-650 mg by mouth every 6 hours as needed for mild pain 04/11/2024 albuterol (PROAIR HFA/PROVENTIL HFA/VENTOLIN HFA) 108 (90 Base) MCG/ACT inhalerIndications:Mo derate persistent reactive airway disease with acute exacerbation [...] methylPREDNISolone (MEDROL DOSEPAK) 4 MG tablet therapy packIndications:Nadira orozco Follow Package Directions 21 tablet 10/20/2022 04/11/2024 mupirocin (BACTROBAN) 2 % external ointmentIndications:I mpetigo Apply topically 3 times daily 15 g 08/22/2023 04/11/2024 ondansetron (ZOFRAN-ODT) 4 MG ODT tabIndications:Prenat al care, subsequent , unspecified trimester Place 1 tablet (4 mg) under the tongue every 6 hours as needed for nausea 120 tablet 3 10/29/2021 04/11/2024 predniSONE (DELTASONE) 20 MG tabletIndications:Mod erate persistent reactive airway disease with acute exacerbation Take 3 tabs by mouth daily x 3 days, then 2 tabs daily x 3 days, then 1 tab daily x 3 days, then 1/2 tab daily x 3 days. 20 tablet 07/13/2023 04/11/2024 Vit-Fe Fumarate-FA (PNV PLUS MULTIVITAMIN) 27-1 MG TABS per tablet Take 1 tablet by mouth daily 04/11/2024 SENNA-docusate sodium (SENNA S) 8.6-50 MG tablet Take 1-2 tablets by mouth 2 times daily as needed (if taking oxycodone) 30 tablet 04/07/2024 04/11/2024 documented as of this encounter ED Notes * Kat Campos RN - 04/07/2024 1:03 PM CDT Patient reports known mass in right knee that needs surgical intervention. Patient reports that shewas kneeling on her knee and then developed pain and swelling. She is concerned that the mass has been affected. CMS intact. Able to ambulate without difficulty. Took naproxen and tylenol at home prior to arrival. * Sekou Winston MD - 04/07/2024 12:56 PM CDT Emergency Department Note History of Present Illness Chief Complaint Knee Pain HPI Hanane Ojeda is a 33 year old female with a history of seizures who presents for an evaluation of knee pain. The patient stated she has been dealing with right sided knee pain for awhile. She added recently having an MRI and x-ray done and being diagnosed with a mass on her kneecap. She added being on her knees the other day and hearing a pop. She stated since then the pain is extreme and sheis unable to bear weight and having difficulty walking. She noted it's hard to get off the floor and her knee shakes when she straightens it. She denies . She noted having knee issues for the past 5 years and wearing a brace everyday. She also noted eventually getting surgery but being unable to do now as her recently had back surgery. Independent Historian None Review of External Notes I reviewed the medical records from [facility] orthopedics office visit on 03/27/2024 for the patient's recent knee diagnosis and MRI results. Past Medical History Medical History and Problem List Bladder stone Edema Anxiety Immunization deficiency Opiate abuse PCOS Allergic rhinitis Seizures Shingles Tobacco abuse Varicella Depression Medications Methocarbamol Gabapentin Naproxen Surgical History Dilation and curettage EGD LEEP Physical Exam Patient Vitals for the past 24 hrs: BP Temp Temp src Pulse Resp SpO2 04/07/24 1302 129/88 98.2 ??F (36.8 ??C) Temporal 80 16 100 % Physical Exam Constitutional: Well developed, nontox appearance Head: Atraumatic. Neck: no stridor Eyes: no scleral icterus Cardiovascular: RRR, 2+ R PT pulses Pulmonary/Chest: nml resp effort Ext: Warm, well perfused, no edema RLE: No obvious deformities, medial-inferior joint swelling and tenderness, distal CMS intact Neurological: A&O, symmetric facies, moves ext x4 Skin: Skin is warm and dry. Psychiatric: Behavior is normal. Thought content normal. Nursing note and vitals reviewed. Diagnostics Lab Results None Imaging None EKG None Independent Interpretation None ED Course Medications Administered Medications oxyCODONE (ROXICODONE) tablet 5 mg (5 mg Oral $Given 04/07/24 1612) acetaminophen (TYLENOL) tablet 1,000 mg (1,000 mg Oral $Given 04/07/24 1612) Procedures None Discussion of Management None ED Course ED Course as of 04/07/24 2322 Sun Apr 07, 2024 1604 I obtained history and examined the patient as noted above. Optional/Additional Documentation History of opioid abuse. Medical Decision Making / Diagnosis [facility] Diagnoses: None MIPS None MDM 33 year old female presenting w/ right knee pain Patient's MRI reviewed with ovoid mass noted. No significant trauma the patient declined an x-ray which is not unreasonable given the likelihood for acute fracture. Patient was fitted with a knee immobilizer and given small-moderate pain medication after review of her BLUEPRINT PROCESSOR. She is advised to follow-up with her primary orthopedist for reevaluation. I do not feel emergent MRI is indicated. Doubt septic arthritis, knee dislocation. RICE instructions given for home. At this time I feel the pt is safe for discharge. Recommendations given regarding follow up with orthopedics and return to the emergency department as needed for new or worsening symptoms. Patient counseled on disposition and diagnosis. They are understanding and agreeable to plan. Patient discharged in stable condition. Disposition The patient was discharged. Diagnosis ICD-10-CM 1. Acute pain of right knee M25.561 2. Knee mass, right R22.41 Discharge Medications Discharge Medication List as of 04/07/2024 4:15 PM START taking these medications Details oxyCODONE (ROXICODONE) 5 MG tablet Take 1 tablet (5 mg) by mouth every 6 hours as needed for breakthrough pain or severe pain, Disp-6 tablet, R-0, E-Prescribe SENNA-docusate sodium (SENNA S) 8.6-50 MG tablet Take 1-2 tablets by mouth 2 times daily as needed (if taking oxycodone), Disp-30 tablet, R-0, E-Prescribe Scribe Disclosure: I, Earline Devlin Rubens, am serving as a scribe at 5:12 PM on 04/07/2024 to document services personally performed by Sekou Winston MD based on my observations and the provider's statements to me. Sekou Winston MD 04/07/242321 documented in this encounter Plan of Treatment Not on file documented as of this encounter Visit Diagnoses Diagnosis Acute pain of right knee Knee mass, right documented in this encounter Administered Medications Inactive Administered Medications - up to 3 most recent administrations Medication Order MAR Action Action Date Dose Rate Site acetaminophen (TYLENOL) tablet 1,000 mg 1,000 mg, Oral, ONCE, On 04/07/24 at 1610, For 1 dose, Maximum acetaminophen dose from all sources = 75 mg/kg/day not to exceed 4 gram $Given 04/07/2024 4:12 PM CDT 1,000 mg oxyCODONE (ROXICODONE) tablet 5 mg 5 mg, Oral, ONCE, On 04/07/24 at 1610, For 1 dose $Given 04/07/2024 4:12 PM CDT 5 mg documented in this encounter Active and Recently Administered Medications Times are shown in CDT. Scheduled Medication Order 04/05/2024 04/06/2024 04/07/2024 acetaminophen (TYLENOL) tablet 1,000 mg (COMPLETED) 1,000 mg, Oral, ONCE, On 04/07/24 at 1610, For 1 dose, Maximum acetaminophen dose from all sources = 75 mg/kg/day not to exceed 4 gram 161 ($Given - Provi warren: Laurita Ray RN) oxyCODONE (ROXICODONE) tablet 5 mg (COMPLETED) 5 mg, Oral, ONCE, On 04/07/24 at 1610, For 1 dose 1612 ($Given - Provi warren: Laurita Ray RN) documented in this encounter Additional Health Concerns Assessment Noted Time PHQ-9 Depression Total Score: 0 06/07/20 22 4:21 PM CDT documented as of this encounter Care Teams Associate Editor Relationship Specialty [place] [address] [place], [place] [id number] PCP - General Family Practice 09/12/16 Clinic - [facility] [address] [place] [address] Assigned PCP 10/26/23 documented as of this encounter
--- OUTSIDE RECORDS SUMMARY | 2024-04-14 16:56 | XMS_ITS | Encounter Summary ---
Author Organization [place] Address [facility], [facility]0 [facility] [place] [address] Care Team Providers Care Director Manufacturing Engineering Name Role Phone No Ref-Primary, Physician Primary Care Provider Tone Galindo MD Primary Care Provider [phone] Eric Khan MD Unavailable [phone] Marie Elizabeth MD Unavailable Marie Elizabeth MD Unavailable Eric Khan MD Unavailable [phone] Deysi Zabala RN Unavailable Tone Galindo MD Unavailable Marion Singh Unavailable Unavailable Ericka Hernandez APRN PASSENGER TIRE BUILDER Unavailable Unavail able Sekou Machado MD Unavailable Tone Galindo MD Unavailable Ericka Hernandez APRN PASSENGER TIRE BUILDER Unavailable Unavail able Tone Galindo MD Unavailable Ericka Hernandez APRN, CNP Unavailable Unavail able [facility] Unavail able Encounter Details Date Type Department Care Team (Late st Contact Info) Description 10/23/2015 Telephone [facility] Neurosurgery Clinic [address] [address] [place], FAMILY CONSUMER SCIENCE TEACHER [address] [facility] [address] [place], [place] [address] Social History Tobacco Use Types Packs/Day Years Used Date Smoking Tobacco: Every Day Cigarettes 1 10 Smokeless Tobacco: Never Alcohol Use Standard Drinks/Week Comments No 0 (1 standard drink = 0.6 oz pur e alcohol) Sex and Gender Information Value Date Recorded Sex Assigned at Female 12/17/2021 7:56 AM CDT Gender Identity Female 12/17/2021 7:56 AM CDT Sexual Orientation Not on file documented as of this encounter Plan of Treatment Not on file documented as of this encounter Visit Diagnoses Not on filedocumented in this encounter Care Teams Director Manufacturing Engineering Relationship Specialty Start Date End Date No Ref-Primary, Physician PCP - General 02/01/16 09/11/16 [place] [address] [place], [place] [phone] PCP - General Family Practice 09/12/16 [place] [address] [place], [place] [phone] PCP - Assigned PCP 08/20/17 08/18/18 Marie Elizabeth MD [address] [address] PCP - Assigned PCP 08/19/18 12/04/18 Marie Elizabeth MD [address] [address] Assigned PCP 08/19/18 05/18/19 [place] [address] [place], [place] [phone] Assigned PCP 05/19/19 06/27/20 Deysi Zabala, MELISSA Personal Advocate & Liaison (PAL) Nurse 06/15/20 08/31/20 [place] [address] [place], [place] [phone] Assigned PCP 06/28/20 07/17/21 Marion Singh Personal Advocate & Liaison (PAL) 09/01/20 06/23/21 Ericka Hernandez APRN PASSENGER TIRE BUILDER Assigned PCP 07/18/21 10/09/21 Sekou Machado MD [address] [place] [address] Assigned OBGYN Provider 10/03/21 [place] [address] [place] [address] Assigned PCP 10/10/21 12/25/21 Ericka Hernandez APRN PASSENGER TIRE BUILDER [address] [place] [address] Assigned PCP 12/26/21 01/06/23 [place] [address] [place] [address] Assigned PCP 01/07/23 06/30/23 Ericka Hernandez APRN PASSENGER TIRE BUILDER Assigned PCP 07/01/23 10/25/23 [facility] [address] [place] [address] Assigned PCP 10/26/23 documented as of this encounter
--- OUTSIDE RECORDS SUMMARY | 2024-04-14 16:56 | XMS_ITS | Encounter Summary ---
Author Organization [place] Address [facility] [address] Care Team Providers Care Finisher Fine Diamond Dies Name Role Phone Tone Galindo MD Primary Care Provider Tone Galindo MD Unavailable Marion Singh Unavailable Unavailable Ericka Hernandez APRN SHEET WRITER Unavailable Unavail able Sekou Machado MD Unavailable [phone] Tone Galindo MD Unavailable Ericka Hernandez APRN, CNP Unavailable Unavail able Tone Galindo MD Unavailable Ericka Hernandez APRN SHEET WRITER Unavailable Unavail able [facility] Unavail able Encounter Details Date Type Department Care Team (Late st Contact Info) Description 06/23/2021 Documentation Only INTERFACED REPORT Unknown, Provider Social History Tobacco Use Types Packs/Day Years Used Date Smoking Tobacco: Every Day Cigarettes 1 10 Smokeless Tobacco: Never Alcohol Use Standard Drinks/Week Comments No 0 (1 standard drink = 0.6 oz pur e alcohol) PHQ-2 Answer Date Recorded PHQ-2 Score 0 07/02/2020 Sex and Gender Information Value Date Recorded Sex Assigned at Female 12/17/2021 7:56 AM CDT Gender Identity Female 12/17/2021 7:56 AM CDT Sexual Orientation Not on file COVID-19 Exposure Response Date Recorded In the last month, have you been in contact with someone who was confirmed or suspected to have Coronavirus / COVID-19? Yes 06/15/2021 8:55 AM CDT documented as of this encounter Plan of Treatment Not on file documented as of this encounter Visit Diagnoses Not on filedocumented in this encounter Care Teams Finisher Fine Diamond Dies Relationship Specialty [place] [address] [place] [address] PCP - General Family Practice 09/12/16 [place] [address] [place] [address] Assigned PCP 06/28/20 07/17/21 Marion Singh Personal Advocate & Liaison (PAL) 09/01/20 06/23/21 Ericka Hernandez APRN SHEET WRITER Assigned PCP 07/18/21 10/09/21 Sekou Machado MD [address] [place] [address] Assigned OBGYN Provider 10/03/21 [place] [address] [place] [address] Assigned PCP 10/10/21 12/25/21 Ericka Hernandez APRN SHEET WRITER [address] [place] [address] Assigned PCP 12/26/21 01/06/23 [place] [address] [place], [place] [phone] Assigned PCP 01/07/23 06/30/23 Ericka Hernandez APRN SHEET WRITER Assigned PCP 07/01/23 10/25/23 [facility] [address] [place] [address] Assigned PCP 10/26/23 documented as of this encounter
--- OUTSIDE RECORDS SUMMARY | 2024-04-14 16:56 | XMS_ITS | Encounter Summary ---
Author Organization [place] Address [facility] [place] [address] Care Team Providers Care Mechanical Sound Technician Name Role Phone No Ref-Primary, Physician Primary Care Provider Tone Galindo MD Primary Care Provider [phone] Eric Khan MD Unavailable [phone] Marie Elizabeth MD Unavailable [phone] Marie Elizabeth MD Unavailable Eric Khan MD Unavailable [phone] Deysi Zabala RN Unavailable Tone Galindo MD Unavailable Marion Singh Unavailable Unavailable Ericka Hernandez APRN PLATE CORRECTOR Unavailable Unavail able Sekou Machado MD Unavailable Tone Galindo MD Unavailable Ericka Hernandez APRN PLATE CORRECTOR Unavailable Unavail able Tone Galindo MD Unavailable Ericka Hernandez APRN, CNP Unavailable Unavail able [facility] Unavail able Encounter Details Date Type Department Care Team (Late st Contact Info) Description 10/23/[address] [facility] Neurosurgery Clinic [address] [address] [place], GRAIN PACKER [address] [facility] [address] [place], [place] [address] Social History Tobacco Use Types Packs/Day Years [...] on filedocumented in this encounter Care Teams Mechanical Sound Technician Relationship Specialty Start Date End Date No Ref-Primary, Physician PCP - General 02/01/16 09/11/16 [place] [address] [place], [place] [phone] PCP - General Family Practice 09/12/16 [place] [address] [place], [place] [phone] PCP - Assigned PCP 08/20/17 08/18/18 Marie Elizabeth MD [address] [address] PCP - Assigned PCP 08/19/18 12/04/18 Marie Elizabeth MD [address] [address] Assigned PCP 08/19/18 05/18/19 [place] [address] [place], [place] [id number] Assigned PCP 05/19/19 06/27/20 Deysi Zabala, MELISSA Personal Advocate & Liaison (PAL) Nurse 06/15/20 08/31/20 [place] [address] [place], [place] [phone] Assigned PCP 06/28/20 07/17/21 Marion Singh Personal Advocate & Liaison (PAL) 09/01/20 06/23/21 Ericka Hernandez APRN PLATE CORRECTOR Assigned PCP 07/18/21 10/09/21 Sekou Machado MD [address] [place] [address] Assigned OBGYN Provider 10/03/21 [place] [address] [place] [address] Assigned PCP 10/10/21 12/25/21 Ericka Hernandez APRN PLATE CORRECTOR [address] [place] [address] Assigned PCP 12/26/21 01/06/23 [place] [address] [place] [address] Assigned PCP 01/07/23 06/30/23 Ericka Hernandez APRN PLATE CORRECTOR Assigned PCP 07/01/23 10/25/23 [facility] [address] [place] [address] Assigned PCP 10/26/23 documented as of this encounter
== END 2024-04-14 17:02 | disposition home or self-care (01) ==
PROVIDERS: Emergency Provider Emergency Medicine Emergency Medical Services
DX: L03.115 Cellulitis of right lower limb (principal)
CPT/HCPCS: 11730; 99283; 99284